=== PATIENT | male | born 1940 | race Caucasian/White ===

== ENCOUNTER → 2017-06-04 | Outpatient (CLI) | payer BC ==
[~2017-06-04] MED LIST: ASPEC81 PO; LPT40 PO; NRV5 PO; OPTIRAY 320 IV PRN
--- NOTE | 2017-06-04 09:06 | DIAGNOSTIC IMAGING REPORT ---
ANGIOGRAPHY NECK COMBO CLINICAL HISTORY: 77 years-old Male presenting with right carotid stenosis, history of surgery in 2013. TECHNIQUE: Multidetector CT angiography of the neck was performed before and after the administration of intravenous contrast. 3-D volumetric and/or maximum intensity projection (MIP) images were subsequently reconstructed for review. IV contrast: 119 mL of Optiray 320. A dose lowering technique was used consistent with the principles of ALARA (as low as reasonably achievable). Stenosis measurements were based on NASCET-like criteria. COMPARISON: 02/14/2014. CT DOSE (mGy.cm): The estimated cumulative dose is 903.76 mGy.cm. FINDINGS: Welding Supervisor topogram: Unremarkable. Three-vessel aortic arch. Mild atherosclerosis of the aortic arch. Bilateral common carotid arteries patent. Postsurgical changes of the distal right common carotid artery, right carotid bifurcation, and origin of the right internal carotid artery. Overlying graft noted. However, significant stenosis of the proximal right ICA persists with a minimal lumen of 1.1 mm in comparison to the normal distal diameter of 4.0 mm (approximately 75% stenosis). The remainder of the right ICA is patent. Left internal carotid artery patent though calcified plaque is noted at the left carotid bulb. Previously noted narrowing of the origin of the right vertebral artery is less pronounced on the current exam and appears widely patent. The origin of the left vertebral artery is also widely patent. Codominant vertebral arteries. 2. Short segment caliber changes in the mid cervical left vertebral artery (series 5 images 255 and 286), unchanged from prior exam and possibly representing prior injury. No evidence of acute dissection or focal vessel occlusion. Soft tissues of the neck are within normal limits allowing for the phase of contrast. Limited intracranial evaluation within normal limits. Paranasal sinuses and mastoid air cells clear. Degenerative changes of the mid to lower cervical spine. Severe emphysematous changes at the lung apices. IMPRESSION: 1. Postsurgical changes of the distal right common carotid artery, right carotid bifurcation, and origin of the right internal carotid artery. However, approximate 75% stenosis of the origin of the right ICA persists. 2. No other significant stenosis. 3. No evidence of acute dissection or focal vessel occlusion. Electronically signed by: Luís Rasheed M.D. 06/04/2017 9:05 AM Dictated Date/Time: 06/04/2017 8:50 AM
== END | disposition home or self-care (01) ==
LOC: C.CTS 08:16
PROVIDERS: ATTEND Physician Assistant
DX: I65.21 Occlusion and stenosis of right carotid artery (principal); Z98.890 Other specified postprocedural states

== ENCOUNTER 2017-09-10 05:24 | Inpatient (IN) | payer BC, OTHER ==
[2017-09-06 08:15] VITALS: BMI 24.0
--- NOTE | 2017-09-06 08:48 | PAT Medication Instructions ---
Service Date September 06, 2017. Current Home Medication List Amlodipine (Norvasc), 5 MG PO QAM Aspirin (Aspirin Ec), 81 MG PO QAM Atorvastatin (Lipitor), 40 MG PO QPM Medication Instructions For Your Scheduled Surgery - Take the following medications the morning of surgery with a sip of water: Amlodipine (Norvasc), 5 MG PO QAM Aspirin (Aspirin Ec), 81 MG PO QAM (OK per surgeon) - Take the following medications as scheduled the night before surgery: Atorvastatin (Lipitor), 40 MG PO QPM If you have any questions please call us at [phone] or [phone] or [phone]
--- NOTE | 2017-09-06 09:24 | DIAGNOSTIC IMAGING REPORT ---
CHEST 2 VIEWS ROUTINE CLINICAL HISTORY: PAT preoperative evaluation COMPARISON STUDY: 02/13/2014 FINDINGS: Mild emphysematous change. No focal infiltrate. Moderate degenerative change thoracic spine IMPRESSION: Negative chest. Mild emphysematous change The above report was generated using voice recognition software. It may contain grammatical, syntax or spelling errors. Electronically signed by: Tushar King M.D. 09/06/2017 9:23 AM Dictated Date/Time: 09/06/2017 9:21 AM
[2017-09-06 10:11] LABS: BASO % 0.8 %; BASO ABS # 0.06 K/uL (0-0.2); EOS % 1.4 %; EOS ABS # 0.11 K/uL (0-0.5); HEMATOCRIT 43.7 % (42-52); HEMOGLOBIN 15.2 g/dL (14.0-18.0); IG# 0.03 K/uL (0.00-0.02); LYMPH ABS # 1.89 K/uL (1.2-3.4); MEAN CORPUSCULAR HGB CONC 34.8 g/dl (32-36); MEAN PLATELET VOLUME 9.1 fL (7.4-10.4); MONO % 8.5 %; MONO ABS # 0.67 K/uL (0.11-0.59); NEUT % 64.9 %; NEUT ABS # 5.12 K/uL (1.4-6.5); PLATELET COUNT 367 K/uL (130-400); RED CELL DISTRIBUTION WIDTH CV 13.4 % (11.5-14.5); RED CELL DISTRIBUTION WIDTH SD 44.2 fL (36.4-46.3); WHITE BLOOD COUNT 7.88 K/uL (4.8-10.8)
[2017-09-06 10:19] LABS: PTT PATIENT 26.4 SECONDS (21.0-31.0)
[2017-09-10] VITALS (10 sets, daily range): BP systolic 125–160; BP diastolic 62–82; PULSE 79–105; TEMP 36.6–37.3; O2SAT 95–96; Ht 172.7 cm; Wt 73.9 kg
[~2017-09-10] VITALS: Ht 172.7 cm; Wt 73.9 kg
[~2017-09-10 05:24] MED LIST changes: +AMLO-110 PO; -ASPEC81 PO; +ASPI81TA28 PO; +ATOR-24 PO; -LPT40 PO; -NRV5 PO; -OPTIRAY 320 IV PRN
--- NOTE | 2017-09-10 05:51 | History and Physical ---
History & Physical Date of Service September 10, 2017. History & Physical Chief Complaint: Recurrent RICAS History of Present Illness: Mr. Jacky Aceves is a 77-year-old gentleman, who underwent a right carotid endarterectomy in January 2014. He was seen in our office in April 2017 after an ultrasound that showed re-stenosis of his right carotid measuring approximately 50-69%. Given the high diastolic velocities on his duplex, we recommended that he undergo a CTA of the neck. This showed a very significant narrowing in his right carotid artery. Mr. Aceves says that he was surprised to hear that his carotid stenosis had recurred. He has otherwise been feeling well, and denies any episodes of unilateral upper or lower extremity numbness or weakness. He has not had any visual changes or symptoms concerning for amaurosis fugax. He does note that his is supposed to have knee surgery in 2 weeks, and for this reason, he would like to delay any surgery that he might need on his carotid. He is otherwise feeling well. Denies fevers, chills , night sweats, headache, dizziness, chest pain, shortness of breath. Allergies No Known Allergies Surgical / Medical History Hx Cardiac Surgery: No Hx Abdominal Surgery: No Hx Cancer Surgery: No Hx Thoracic Surgery: No Hx Orthopedic: No Hx Urinary Tract Surgery: No HX Other Surgery: No CAD Carotid artery disease Family History Cancer Heart disease Hypertension Lung disease Social History Smoking Status: Former Smoker Hx Tobacco Use In Past Year?: No Hx Alcohol Use - Type & Amnt: Yes (beer, wine occasionally) Hx Substance Use -Type & Amnt: No Review of Systems Constitutional: no fever, No chills Skin: No change in color Eyes: No photophobia, No visual changes ENMT: No rhinorrhea Respiratory: No cough, No LESTER, No hemoptysis, No short of breath Cardiovascular: No chest pain, No palpitations, No syncope, No edema, No intermittent claudication Gastrointestinal: No abdominal pain, No diarrhea, No nausea, No vomiting Neurologic: No dizziness, No weakness, No headache, No numbness, No tingling Physical Exam Physical Exam: Constitutional: General Apperance: heathly-appearing, well-nourished, well-developed Level of Distress: NAD Ambulation: ambulating normally Psychiatric: Mental Status: active & alert, normal mood, normal affect Orientation: oriented except where noted, to time, to place, to person Memory: recent memory normal, remote memory normal Head: normocephalic, atraumatic Eyes: EOM: EOMI ENMT: normal ENT inspection, hearing grossly normal Neck: supple, trachea midline Lungs: Respiratory effort: no dyspnea Auscultation: no wheezing, no rales/crackles, no rhonchi, decreased breath sounds Cardiovascular: Apical Impulse: not displaced Heart Auscultation: RRR, no murmurs, no rubs, no gallops Peripheral Pulses: Pulses: full and equal, in all extremities except if noted Bruits: none appreciated Brachial Pulses: normal on the left, normal on the right Radial Pulse: normal on the left, normal on the right Ulnar Pulse: normal on the left, normal on the right Femoral Pulse: normal on the left, normal on the right Posterior Tibialis Pulse: normal on the left, normal on the right Dorsalis Pedis Pulse: normal on the left, normal on the right Abdomen: Bowel Sounds: normal Inspection & Palpation: soft, non-distended, no tenderness, guarding & rebound Musculoskeletal: normal strength (5/5 throughout), normal tone Extremities: Upper Right: no cyanosis, no edema, no varicosities Upper Left: no cyanosis, no edema, no varicosities Lower Right: no cyanosis, no edema, no varicosities Lower Left: no cyanosis, no edema, no varicosities Neurologic: Cranial Nerves: grossly intact Sensation: grossly intact ASSESSMENT and PLAN: Recurrent RICAS, severe Plan: Patient is admitted for a redo right carotid endarterectomy. I have discussed the risks options and benefits of the procedure with the patient. The patient understands the risks options and benefits and agrees to the procedure.
[2017-09-10] MEDS ORDERED: CEFAZOLIN 1000MG IV PUSH 7.5 ML IV SCH (06:00)
[2017-09-10] MEDS ORDERED: LACTATED RINGER'S 1000ML 1,000 ML IV SCH ×2 (06:00)
[2017-09-10] MEDS ORDERED: MIDAZOLAM HCL 1 MG/ML 2ML VIAL ONE (06:44)
[2017-09-10] MEDS ORDERED: FENTANYL CITRATE INJ 50 MCG/1 ML 2 ML VIAL ONE ×2 (06:44→08:22)
[2017-09-10] MEDS ORDERED: LIDOCAINE HCL 1% 20 ML VIAL ONE (06:49)
[2017-09-10] MEDS ORDERED: CEFAZOLIN SOD 1 GM VIAL ONE (06:49)
[2017-09-10] MEDS ORDERED: THROMBIN FOR SOLN 20000 UNIT KIT ONE (06:49)
[2017-09-10] MEDS ORDERED: GELATIN SPONGE SZ 100 ONE (06:49)
[2017-09-10] MEDS ORDERED: HEPARIN SOD (PORCINE) 1000 UNIT/ML 10 ML VIAL ONE ×2 (06:50→08:14)
[2017-09-10] MEDS ORDERED: BUPIVACAINE/EPINEPHRINE 0.5% MPF 1:200,000 30 ML VIAL ONE (06:53)
--- NOTE | 2017-09-10 07:13 | History & Physical Bridge Note ---
H&P Re-Evaluation Bridge Note: I have examined the patient, reviewed the History & Physical and in the interval since the performance of the History & Physical I have noted the following changes of clinical significance: No changes noted
[2017-09-10] MEDS ORDERED: FENTANYL CITRATE INJ 50 MCG/1 ML 2 ML VIAL IV PRN (07:30)
[2017-09-10] MEDS ORDERED: ONDANSETRON INJ 2 MG/ML 2 ML VIAL IV PRN ×2 (07:30→09:45)
[2017-09-10] MEDS ORDERED: ATROPINE SULFATE 0.1 MG/ML 5ML SYR IV PRN (07:30)
[2017-09-10] MEDS ORDERED: EpHEDrine SULFATE INJ 50 MG/ML AMP IV PRN (07:30)
[2017-09-10] MEDS ORDERED: PROPOFOL IV EMULSION 10 MG/ML 20 ML VIAL ONE (08:05)
[2017-09-10] MEDS ORDERED: DEXAMETHASONE SOD INJ 4 MG/ML VIAL ONE (08:05)
[2017-09-10] MEDS ORDERED: ROCURONIUM BROMIDE 10 MG/ML 5 ML VIAL ONE (08:05)
[2017-09-10] MEDS ORDERED: LIDOCAINE HCL 2% 2 ML VIAL (20MG/ML) ONE (08:05)
[2017-09-10] MEDS ORDERED: PHENYLEPHRINE HCL INJ 10 MG/ML VIAL ONE (08:06)
[2017-09-10] MEDS ORDERED: EpHEDrine SULFATE 50MG/5ML SYR ONE (08:06)
[2017-09-10] MEDS ORDERED: ONDANSETRON INJ 2 MG/ML 2 ML VIAL ONE (08:08)
[2017-09-10] MEDS ORDERED: GLYCOPYRROLATE INJ 0.2 MG/ML VIAL ONE (09:37)
[2017-09-10] MEDS ORDERED: NEOSTIGMINE METHYLSULFATE 5 MG/5 ML SYR ONE (09:37)
--- NOTE | 2017-09-10 09:40 | [facility] Post Operative Brief Note ---
Immediate Operative Summary Operative Date September 10, 2017. Pre-Operative Diagnosis Recurrent right internal carotid artery stenosis Post-Operative Diagnosis Same Procedure(s) Performed Redo Right Carotid Endarterectomy with patch angioplasty Surgeon Dr Sheriff Social Worker Palliative Care Surgeon(s) Love Varela PA-C Estimated Blood Loss 120 ML Findings Consistent with Post-Op Diagnosis Specimens A. Right Carotid Plaque Drains None Anesthesia Type General Complication(s) none Disposition Accompanied Pt To Recover: no Disposition: Recovery Room / PACU
[2017-09-10] MEDS ORDERED: OXYCODONE/ACETAMINOPHEN 5-325 TAB PO PRN (09:45)
[2017-09-10] MEDS ORDERED: ACETAMINOPHEN 325 MG TAB PO PRN (09:45)
[2017-09-10] MEDS ORDERED: MoRPHine SULFATE 4 MG/ML 1 ML CARP\\VIAL IV PRN (09:45)
--- NOTE | 2017-09-10 09:47 | [facility] Operative Report ---
Operative Report Operative Date September 10, 2017. 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 Right Carotid Plaque Drains None Anesthesia Type General Complication(s) none Disposition no Recovery Room / PACU Indications Patient is a 77 yo male who had a right carotid endart done years ago and now has developed significant restenosis. Redo CEA was recommended. I have discussed the risks options and benefits of the procedure with the patient. The patient understands the risks options and benefits and agrees to the procedure. Description of Procedure The patient was taken to the operating room and placed in supine position. After general anesthesia was accomplished the right side of the neck was prepped and draped in a sterile manner. A longitudinal neck incision was then made coursing along the medial border of the sternocleidomastoid muscle. The incision was taken down through the platysmal layer. The common carotid artery was then seen. It was dissected free down to the omohyoid muscle. The dissection was carried upward until the external carotid artery and superior thyroid artery was seen. The superior thyroid artery was slung with a 2-0 silk suture. The external carotid was slung with a red rubber vessel loop. Next the dissection was carried up along the internal carotid artery. This was carried upward to beyond the area of narrowing and beyond the end of the old patch. The hypoglossal nerve was seen and preserved. The patient was heparinized. After adequate heparinization was accomplished, the internal, external, and common carotid arteries were clamped. A longitudinal arteriotomy was started on the common carotid artery and extended upward along the internal carotid artery to a point beyond the area of narrowing. There was fibrous hyperplasia of the internal carotid artery origin causing approximately 85-90% narrowing. A Doppler shunt was then placed in the internal, followed by the common carotid artery and held in place with Rigoberto clamps. There was good back bleeding seen from the internal carotid artery. The endarterectomy was then started in the appropriate plane on the common carotid artery. This was carried upward and the external carotid was everted and endarterectomized. The endarterectomy was then carried up along the internal carotid artery till a nice feathering breakoff point was accomplished beyond the end of the narrowed area. The endarterectomy was then carried down further on the common carotid artery. At end of the arteriotomy, the plaque was then transected. Under loop magnification, all loose debris and flaps werer removed. There is no distal flap seen at the end of the endarterectomy site. The arteriotomy then closed using an Accuseal patch and a running CV 6 [place]-Davon suture. This was done in the usual vascular fashion. Prior to completing the closure, the doppler shunt was removed and the internal and common carotid arteries were reclamped. Backbleeding and forward bleeding was allowed to occur. The flow surface was irrigated with heparinized saline. The final few sutures were then placed and securely tied. Clamps were then removed off the external and common carotid arteries. The clamp was then removed the internal carotid artery. Good distal flow was seen. Adequate hemostasis was seen of the patch. The wound was inspected and adequate hemostasis was obtained. The wound was irrigated with antibiotic solution. It was then closed with a running 3-0 Vicryl suture for the platysmal layer and a 4-0 subcuticular Vicryl suture for the skin edges. Dermabond was used for dressing. The patient left the operating room in satisfactory condition and tolerated the procedure well. Love Varela Pac assisted due to lack of resident availability and was necessary for prepping, draping, retraction, wound closure defects, subQ and skin closure and was necessary for the case. I attest to the content of the Intraoperative Record and any orders documented therein. Any exceptions are noted below.
[2017-09-10] MEDS ORDERED: BUPIVACAINE/EPINEPHRINE 0.5% MPF 1:200,000 30 ML VIAL INJ ONE (10:18)
--- NOTE | 2017-09-10 11:49 | Anesthesiology Progress Note ---
Anesthesia Post Op Note Date & Time September 10, 2017 at 11:49 Vital Signs Pain Intensity: 0 Vital Signs Past 12 Hours Date Time Temp Pulse Resp B/P (MAP) Pulse Ox O2 Delivery O2 Flow Rate FiO2 09/10/17 11:02 90 18 09/10/17 11:02 90 18 94 09/10/17 11:01 129/56 09/10/17 10:58 130/53 09/10/17 10:57 85 14 95 09/10/17 10:57 85 14 09/10/17 10:52 37.5 94 Nasal Cannula 3 09/10/17 10:52 88 16 156/52 94 09/10/17 10:52 89 16 09/10/17 10:51 120/61 09/10/17 10:47 85 15 09/10/17 10:47 85 15 146/49 95 09/10/17 10:46 78 19 137/62 94 09/10/17 10:46 79 19 09/10/17 10:41 80 14 122/68 95 138/48 09/10/17 10:41 79 14 09/10/17 10:40 81 15 09/10/17 10:40 80 15 137/48 94 09/10/17 10:36 130/53 09/10/17 10:35 75 19 143/49 98 09/10/17 10:35 74 19 09/10/17 10:31 148/63 09/10/17 10:30 79 13 09/10/17 10:30 79 13 130/48 99 09/10/17 10:29 73 12 09/10/17 10:29 73 12 142/51 99 09/10/17 10:26 139/63 09/10/17 10:24 78 16 09/10/17 10:24 78 16 146/52 100 09/10/17 10:21 143/57 09/10/17 10:19 82 13 09/10/17 10:19 82 13 133/49 100 133/49 09/10/17 10:17 107/53 09/10/17 10:14 80 09/10/17 10:14 80 99 09/10/17 10:14 37.0 73 16 142/50 99 Oxymask 10 09/10/17 05:54 37.1 83 20 160/82 96 Room Air Notes Mental Status: alert / awake / arousable, participated in evaluation Pt Amnestic to Procedure: Yes Nausea / Vomiting: adequately controlled Pain: adequately controlled Airway Patency, RR, SpO2: stable & adequate BP & HR: stable & adequate Hydration State: stable & adequate Anesthetic Complications: no major complications apparent
[2017-09-10] MEDS: D5W AND 1/2NSS 1,000 ML IV SCH ×2 (12:26→19:30)
[2017-09-10] MEDS ORDERED: CEFAZOLIN IV 1,000 MG in SYRINGE 0 ML IV SCH (17:00)
[2017-09-10] MEDS ORDERED: NURSING VERBAL MED ORDER ONE (17:30)
[2017-09-10] MEDS ORDERED: ATORVASTATIN 40 MG TAB PO SCH (21:00)
[2017-09-11 00:10] VITALS: BP 145/71; PULSE 80; TEMP 36.8; O2SAT 91
[2017-09-11 03:20] VITALS: BP 149/61; PULSE 73; TEMP 36.6; O2SAT 91
[2017-09-11] MEDS: D5W AND 1/2NSS 1,000 ML IV SCH (04:16)
[2017-09-11 06:43] VITALS: BP 155/70; PULSE 63; TEMP 36.8; O2SAT 96
[2017-09-11 07:38] LABS: CREATININE 1.05 mg/dl (0.60-1.40)
--- NOTE | 2017-09-11 07:56 | Anesthesiology Progress Note ---
Anesthesia Post Op Note Date & Time September 11, 2017 at 07:56 Vital Signs Pain Intensity: 0.0 Vital Signs Past 12 Hours Date Time Temp Pulse Resp B/P (MAP) Pulse Ox O2 Delivery O2 Flow Rate FiO2 09/11/17 06:43 36.8 63 19 155/70 (98) 96 Room Air 09/11/17 04:00 Room Air 09/11/17 03:20 36.6 73 17 149/61 (90) 91 Room Air 09/11/17 00:10 36.8 80 17 145/71 (95) 91 Room Air 09/11/17 00:01 Room Air 09/10/17 20:00 Room Air Notes Mental Status: alert / awake / arousable, participated in evaluation Pt Amnestic to Procedure: Yes Nausea / Vomiting: adequately controlled Pain: adequately controlled Airway Patency, RR, SpO2: stable & adequate BP & HR: stable & adequate Hydration State: stable & adequate Anesthetic Complications: no major complications apparent
[2017-09-11] MEDS ORDERED: AMLODIPINE BESYLATE 5 MG TAB PO SCH (09:00)
[2017-09-11] MEDS ORDERED: ENOXAPARIN 30 MG/0.3 ML SYR SQ SCH (09:00)
[2017-09-11] MEDS ORDERED: ASPIRIN 81 MG ECTAB PO SCH (09:00)
[2017-09-11 11:55] VITALS: BP 190/78; PULSE 79; TEMP 36.3; O2SAT 96
--- NOTE | 2017-09-11 12:35 | Discharge Instructions ---
Discharge Instructions Date of Service September 11, 2017. Admission Reason for Admission: Right Internal Carotid Artery ReStenosis Discharge Discharge Diagnosis / Problem: post repeat Right carotid endarterectomy, R Carotid artery restenosis Discharge Goals Goal(s): Therapeutic intervention, Prevent Disease Progression Activity Recommendations Activity Limitations: per Instructions/Follow-up section . Instructions / Follow-Up Instructions / Follow-Up 1. No driving x 1 week. Other activity as tolerated. 2. May shower, no soaking of incision in water. 3. Needs follow up appt with Dr Sheriff or Love Varela PA-C in 2 weeks. Call [phone] for appt if one not already scheduled. 4. Call office at [phone] with questions. Current Hospital Diet Patient's current hospital diet: AHA Diet (Heart Healthy) Discharge Diet Recommended Diet: AHA Diet (Heart Healthy) Procedures Procedures Performed: Redo Right Carotid Endarterectomy with patch angioplasty Pending Studies Studies pending at discharge: no Medical Emergencies . Who to Call and When: Medical Emergencies: If at any time you feel your situation is an emergency, please call 911 immediately. . Non-Emergent Contact Non-Emergency issues call your: Primary Care Provider, Surgeon . "Provider Documentation" section prepared by Love Varela. .
--- NOTE | 2017-09-11 12:45 | Progress Note ---
Progress Note Date of Service: September 11, 2017. Subjective 77 yo m with hx of R CEA in past d/t CVA, POD #1 after R CEA redo, seen in f/u today. Pt denies pain and states feeling generally well, admits sore throat and fatigue. Denies other complaints. Taking PO well, ambulating without difficulty. Denies [place], chest pain, difficulty speaking or swallowing. Objective Vital Signs Vital Signs Past 12 Hours Date Time Temp Pulse Resp B/P (MAP) Pulse Ox O2 Delivery O2 Flow Rate FiO2 09/11/17 11:55 36.3 79 16 190/78 (115) 96 Room Air 09/11/17 08:00 Room Air 09/11/17 06:43 36.8 63 19 155/70 (98) 96 Room Air 09/11/17 04:00 Room Air 09/11/17 03:20 36.6 73 17 149/61 (90) 91 Room Air Exam CONST: A&O x3, NAD, mildly chronically ill appearing male NECK: R neck incision C/D/I, + minimal tenderness, edema, ecchymosis. trachea midline. CHEST: RRR, lungs decreased, but ctab ABD: soft, nontender, + bs x 4 quad EXT: ESQUEDA NEURO no focal deficits. Laboratory and Microbiology Results Past 24 Hours Test 09/11/17 06:04 Range/Units Creatinine 1.05 0.60-1.40 mg/dl Est Creatinine Clear Calc Drug Dose 57.9 ml/min Estimated GFR () 79.5 Estimated GFR (Non- 68.6 ASSESSMENT and PLAN: s/p redo R CEA R ICA restenosis Pt doing well post op. D/C home today. Pt declines offer of short term pain medication, states will take tylenol if he develops pain.
[2017-09-11 13:31] VITALS: BP 190/78; PULSE 79; TEMP 36.3; O2SAT 96
== END 2017-09-11 14:16 | disposition home or self-care (01) | DRG 39 ==
LOC: C.ACU 05:24 → C.2T 09:49 → ENRESERV 10:34
PROVIDERS: ADMIT Surgery Vascular Surgery; ATTEND Surgery Vascular Surgery
PROC: 03UK0JZ Supplement Right Internal Carotid Artery with Synthetic Substitute, Open Approach (ICD-10-PCS; principal; 2017-09-10 07:30)
PROC: 03CK0ZZ Extirpation of Matter from Right Internal Carotid Artery, Open Approach (ICD-10-PCS; principal; 2017-09-10 07:30)
DX: I65.21 Occlusion and stenosis of right carotid artery (principal); I25.10 Atherosclerotic heart disease of native coronary artery without angina pectoris; Z98.890 Other specified postprocedural states; Z87.891 Personal history of nicotine dependence; Z82.49 Family history of ischemic heart disease and other diseases of the circulatory system

== ENCOUNTER 2020-11-10 18:57 | Inpatient (IN) ==
[2020-11-10] MEDS ORDERED: PIPERACILL/TAZOBAC CONSULT ACTIVE PRN ×2 (20:05→23:16)
--- NOTE | 2020-11-10 20:15 | History & Physical Report ---
Date of Service November 10, 2020 Assessment & Plan (1) Left groin mass: Plan: The etiology of patient's groin mass is unclear at this time however by CAT scan this appears to be a fluid collection. This could represent either a seroma, hematoma, or abscess. Because of the groin mass he will be admitted to the hospital we will proceed as follows: Template planning on surgical exploration tomorrow Patient be allowed clear liquids up until midnight tonight at which time he will be made n.p.o. We will provide gentle IV fluids for hydration We will check labs including a CBC, PRP, blood cultures, and urinalysis We will check a Covid test We will check preoperative EKG and chest x-ray We will place the patient empirically on antibiotics in the form of Zosyn SCDs were used for DVT prevention, no chemical means were used in anticipation of surgery Additional recommendations were made based on operative findings as well as patient's clinical course as it unfolds Discussed CODE STATUS with the patient in the presence of his and he notes that he will be a level 1 full code in the event of cardiopulmonary arrest History of Present Illness Chief Complaint: Groin mass Primary Care Provider: NO PCP This is a 80-year-old male who was seen by Dr. Tellez in the outpatient clinic today for possible left inguinal hernia. The patient notes that approximately 10 days ago he had an incident where his dog ran out the door and the patient went to grab his dog. Following this incident the patient noted some pain in his left groin. He notes over the ensuing days he noticed groin swelling that became worse. He contacted his primary care provider who felt that the patient may have a hernia and therefore ultrasound was ordered. The ultrasound was performed which suggested hernia containing bowel and because of this the patient was referred to Dr. Tellez. He was seen by Dr. Tellez today where the patient felt that the area in question was getting larger and progressively worse. Patient does note that he has not had a bowel movement in over 1 week however he is pot passing flatus without difficulty. He is tolerating diet but does admit that his appetite is slightly decreased. He denies any nausea or vomiting. He denies any fevers, shakes, chills. He also denies any abdominal pain. He denies taking blood thinners other than a baby aspirin. The patient was referred for CT scan by Dr. Tellez today. This was completed and revealed an 8 x 6 x 6 cm cystic lesion in the left groin that was concerning for an abscess. There was also a right inguinal hernia containing a portion of the cecum however there is no evidence of bowel obstruction or free air. His appendix was normal. Because of the CT scan findings the patient was referred for direct admission but due to lack of bed availability he reported to the hospital through the emergency department I visited with the patient in the emergency department at approximate 8:00 PM at this time the patient was resting comfortably in bed in no distress. He did not have any pain other than some tenderness in the left groin with palpation. Allergies Allergy/AdvReac Type Severity Reaction Status Date / Time No Known Allergies Allergy Unverified 11/10/20 10:30 Home Medications Medication Instructions Recorded Confirmed Type amlodipine 5 mg tablet 5 mg PO DAILY 11/08/20 11/10/20 History aspirin 81 mg tablet,delayed 81 mg PO DAILY 11/08/20 11/10/20 History release (Adult Aspirin Regimen) atorvastatin 40 mg tablet 40 mg PO DAILY 11/08/20 11/10/20 History Past Med/Surg History Medical History Fibroxanthoma Left groin mass SIRS (systemic inflammatory response syndrome) Skin lesion Tubular adenoma of colon Surgical History H/O carotid endarterectomy Redo Right CEA 09/10/2017 H/O tooth extraction 2019, 2018, 2017 H/O wisdom tooth extraction 1987 Hx of colonoscopy 2017 S/P carotid endarterectomy 02/17/2014 Family History Mother Cancer Brother Cancer Myocardial infarction Social History Smoking Status: Former smoker Tobacco Type: Cigarettes packs per day: 2; Years Smoked: 40; Second Hand Exposure: No; Do You Dip or Chew Tobacco: No; Hx Alcohol Use: Yes Alcohol type: beer and wine Hx Substance Use: No Preferred Language: Kyrgyz Communication Ability: Effective Bag Bundler Required: No Beliefs That Will Affect Care: None Current Living Situation: Spouse current occupational status: retired How many Children do You have: 2 Feels Safe at Home: Yes Safety Concerns: Feels Safe At This Time Assistive Devices: Glasses Review of Systems Constitutional: no fever and no chills Eyes: no diplopia Respiratory: no cough and no dyspnea Cardiovascular: no chest pain Gastrointestinal: + change in bowel habits; no abdominal pain, no nausea and no vomiting Genitourinary: no dysuria Musculoskeletal: No calf tenderness Integumentary: no rash Neurologic: no localized weakness Physical Exam 2 Constitutional: well developed and well nourished; no acute distress Eyes: no conjunctival abnormality Wears glasses Neck: trachea midline Cardiovascular: Rate/Rhythm: regular rate and regular rhythm Gastrointestinal (Abdomen): Abdomen is soft nondistended and nontender. Bowel sounds are present. I was unable to palpate any hernias in the right groin. In the left groin the patient had erythema noted and also a large mass that was tender to palpation with some warmth. This area was nonreducible. There is no open areas or drainage. Musculoskeletal: No gross orthopedic abnormalities. Skin: no rashes Neurologic: moves all extremities Psychiatric: A+Ox3, euthymic affect Results & Data Results & Data ([facility]) Vital Signs (Past 12 Hours) Vital Signs Temp Pulse Resp BP Pulse Ox 11/10/20 19:07 37.6 C H 111 H 18 172/79 H 93 Code Status & VTE Plan VTE Prophylaxis Plan VTE Prophylaxis will be ordered: Yes Supervising Physician Co-Signing Physician Notes As per Marcel Lilly physician programs assistant Lab noted patient is on antibiotics Complex fluids possible abscess left groin area Patient moved his bowels overnight which was a positive factor since I was conc erned that this could have been a perforated diverticulum from the sigmoid going into the inguinal canal and scrotum This morning the abdomen is completely benign redness superior to the groin crease without any definitive fluctuance +4 left femoral pulse We will plan for exploration of the left groin possible hernia repair possible colostomy (unlikely) Risk and complication were explained to the patient including bleeding infection and the surgical process and he would like to proceed accordingly Permit was signed area was marked PG Care Time/CCT Total # of Minutes Spent Total Time Spent with Patient: Total time spent is greater than 50% in coordination of care (as documented) at patient's floor/unit and/or counseling patient: Coding Level of Care Code 62014 Initial Inpt Care Lvl 3 Diagnoses Left groin mass R19.09
--- NOTE | 2020-11-10 20:43 | XRay Report ---
XR chest 1V portable HISTORY: Preop. Fever. COMPARISON: Chest 02/13/2014. FINDINGS: No pneumothorax. No pleural effusions. The heart is normal in size. There is emphysema with vascular crowding at the lung bases. No new focal lung consolidations to suggest pneumonia. No evide nce for pulmonary edema. IMPRESSION: Emphysema. Otherwise, no acute process within the chest. ACT 112: Negative or not required by law. Electronically signed by: Iván Ramos M.D. 11/10/2020 8:42 PM
[2020-11-10] MEDS ORDERED: PIPERACILLIN/TAZOBACTAM 4.5 GM/120 ML BAG IV STA (20:45)
[2020-11-10] MEDS: LACTATED RINGER'S 1,000 ML IV SCH (21:08)
[2020-11-10 21:09] LABS: Hematocrit (blood only) 42.9 % (42-52); Hemoglobin 14.5 g/dL (14.0-18.0); Mean Corpuscular Hgb Conc 33.8 g/dL (32-36); Mean Corpuscular Volume 91.7 fL (80-100); Mean Platelet Volume 8.9 fL (7.4-10.4); Platelet Count 676 K/uL (130-400); RDW Coefficient of Variation 13.5 % (11.5-14.5); RDW Standard Deviation 44.6 fL (36.4-46.3); Red Blood Count 4.68 M/uL (4.7-6.1)
[2020-11-10 21:23] LABS: Basophils # (auto) 0.03 K/uL (0-0.2); Basophils % (auto) 0.1 %; Immature Granulocytes # (auto) 0.16 K/uL (0.00-0.02); Immature Granulocytes % (auto) 0.6 %; Lymphocytes # (auto) 2.06 K/uL (1.2-3.4); Lymphocytes % (auto) 7.3 %; Monocytes # (auto) 0.73 K/uL (0.11-0.59); Monocytes % (auto) 2.6 %; Neutrophils # (auto) 25.42 K/uL (1.4-6.5); Neutrophils % (auto) 89.4 %; RBC Morphology Unremarkable
[2020-11-10 21:27] LABS: INR 1.1 (0.9-1.1); Partial Thromboplastin Time 27.2 Seconds (21.0-31.0); Prothrombin Time 10.9 Seconds (9.0-12.0)
[2020-11-10 21:29] LABS: BUN Creatinine Ratio 26.5 (10-20); Calcium 9.1 mg/dl (8.5-10.1); Creatinine Clr Calc Pharmacy 54.6 ml/min; Est GFR (African American) 78.8 ml/min; Potassium 4.2 mmol/L (3.5-5.1)
[2020-11-10] MEDS ORDERED: ONDANSETRON INJ 2 MG/ML 2 ML VIAL IV PRN (23:16)
[2020-11-10] MEDS ORDERED: ACETAMINOPHEN 1,000 MG/100 ML VIAL IV PRN (23:16)
[2020-11-11 00:14] LABS: Appearance Urine Clear (Clear); Bacteria Urine Automated Negative (Negative); Bilirubin Urine Negative (Negative); Blood Urine Negative (Negative); Color Urine Dark Yellow; Glucose Urine UA Negative (Negative); Ketones Urine Trace (Negative); Leukocyte Esterase Urine Negative (Negative); Nitrite Urine Negative (Negative); Protein Urine 1+ (Negative); RBC Urine Automated 0-4 /hpf (0-4); Specific Gravity Urine > 1.045 (1.000-1.030); Urobilinogen Urine Negative (Negative); pH Urine 5.5 (4.5-7.5)
[2020-11-11] MEDS: PIPERACILLIN/TAZOBACTAM 3.375 GM in DEXTROSE 5% 100 ML IV SCH ×3 (02:02→17:40)
[2020-11-11] MEDS: amLODIPine BESYLATE 5 MG TAB PO SCH (07:54)
[2020-11-11] MEDS: ATORVASTATIN 40 MG TAB PO SCH (07:54)
--- NOTE | 2020-11-11 13:09 | Electrocardiogram Report ---
Test Reason : Blood Pressure : / mmHG Vent. Rate : 104 BPM Atrial Rate : 104 BPM P-R Int : 168 ms QRS Dur : 092 ms QT Int : 336 ms P-R-T Axes : 083 083 073 degrees QTc Int : 441 ms Sinus tachycardia Otherwise normal ECG When compared with ECG of 06-SEP-2017 09:03, Vent. rate has increased BY 47 BPM Confirmed by Eliud Willson ([id number]) on 11/11/2020 1:09:15 PM Referred By: Sabino Tellez Confirmed By:Yasir Willson
[2020-11-11] MEDS ORDERED: MIDAZOLAM HCL 1 MG/ML 2ML VIAL ONE (13:16)
[2020-11-11] MEDS ORDERED: PROPOFOL IV EMULSION 10 MG/ML 20 ML VIAL IV ONE (13:16)
[2020-11-11] MEDS ORDERED: fentaNYL citrate 100 MCG/2 ML VIAL ONE (13:16)
[2020-11-11] MEDS ORDERED: LIDOCAINE 2% 2 ML VIAL/AMP(20MG/ML) INFIL ONE (13:16)
[2020-11-11] MEDS ORDERED: ROCURONIUM BROMIDE 10 MG/ML 5 ML VIAL IV ONE (13:16)
--- NOTE | 2020-11-11 13:23 | Anesthesiology Consultation ---
Date of Service November 11, 2020 Assessment & Plan Chart Review Chart Review: Acceptable Risk for Surgery Consults Requested none History Surgery Operation Date: 11/11/20 08:20 Proposed Procedures p Open Exploration Left Lower Quadrant, Possible Bowel Resection - Ignacio Lowery MD, FACS s Possible Open Inguinal Hernia Repair - Ignacio Lowery MD, FACS Height/Weight Height: 5 ft 7 in Weight: 65.499 kg Allergies Allergy/AdvReac Type Severity Reaction Status Date / Time No Known Allergies Allergy Unverified 11/10/20 10:30 Medications Home Medications Medication Instructions Recorded Confirmed Last Taken amlodipine 5 mg tablet 5 mg PO DAILY 11/08/20 11/10/20 Unknown aspirin 81 mg tablet,delayed 81 mg PO DAILY 11/08/20 11/10/20 Unknown release (Adult Aspirin Regimen) atorvastatin 40 mg tablet 40 mg PO DAILY 11/08/20 11/10/20 Unknown Active Medications Generic Name Dose Route Start Last Admin Trade Name Freq PRN Reason Stop Dose Admin Amlodipine Besylate 5 mg 11/11/20 09:00 11/11/20 07:54 Amlodipine Besylate 5 Mg Tab PO 12/11/20 08:59 5 mg DAILY MIR Administration Atorvastatin Calcium 40 mg 11/11/20 09:00 11/11/20 07:54 Atorvastatin 40 Mg Tab PO 12/11/20 08:59 40 mg DAILY MIR Administration Lactated Ringer's 1,000 mls @ 50 mls/hr 11/10/20 20:15 11/10/20 21:08 Lr IV 12/10/20 20:14 50 mls/hr .Q20H MIR Administration Piperacillin Sod/Tazobactam 115 mls @ 28.75 mls/hr 11/11/20 02:00 11/11/20 09:38 Sod 3.375 gm/ Dextrose IV 11/18/20 01:59 28.8 mls/hr Q8H MIR Administration Protocol NPO Date Last Intake of Fluids: 11/10/20 Time Last Intake of Fluids: 20:00 Last Intake of Fluids Comment: sip of water w/meds Date Last Intake of Solids: 11/09/20 Time Last Intake of Solids: 18:00 Past Medical History Medical History Fibroxanthoma Left groin mass SIRS (systemic inflammatory response syndrome) Skin lesion Tubular adenoma of colon Past Family History Family History Mother Cancer Brother Cancer Myocardial infarction Past Surgical History Surgical History H/O carotid endarterectomy Redo Right CEA 09/10/2017 H/O tooth extraction 2019, 2017 H/O wisdom tooth extraction 1987 Hx of colonoscopy 2017 S/P carotid endarterectomy 02/17/2014 Social History Smoking Status: Former smoker tobacco type: cigarettes Do You Dip or Chew Tobacco: No Hx Alcohol Use: Yes Alcohol type: beer and wine alcohol intake frequency: holidays/special occasions only Hx Substance Use: No substance use type: does not use Physical Exam Vital Signs Last Vital Signs Temp 37.2 C 11/11/20 11:54 Pulse 94 H 11/11/20 11:54 Resp 18 11/11/20 11:54 BP 158/72 H 11/11/20 11:54 Pulse Ox 96 11/11/20 11:54 Testing Laboratory Results 11/10/20 20:56 11/10/20 20:56 PT 10.9 Seconds (9.0-12.0) 11/10/20 20:56 INR 1.1 (0.9-1.1) 11/10/20 20:56 APTT 27.2 Seconds (21.0-31.0) 11/10/20 20:56 Urine Color Dark Yellow 11/10/20 23:15 Urine Appearance Clear (Clear) 11/10/20 23:15 Urine pH 5.5 (4.5-7.5) 11/10/20 23:15 Ur Specific [place] > 1.045 (1.000-1.030) H 11/10/20 23:15 Urine Protein 1+ (Negative) H 11/10/20 23:15 Urine Glucose (UA) Negative (Negative) 11/10/20 23:15 Urine Ketones Trace (Negative) H 11/10/20 23:15 Urine Nitrite Negative (Negative) 11/10/20 23:15 Ur Leukocyte Esterase Negative (Negative) 11/10/20 23:15 Urine WBC (Auto) 1-5 /hpf (0-5) 11/10/20 23:15 Urine RBC (Auto) 0-4 /hpf (0-4) 11/10/20 23:15 U Hyaline Cast (Auto) 1-5 /lpf (0-5) 11/10/20 23:15 U Epithel Cells (Auto) 10-20 /lpf (0-5) H 11/10/20 23:15 Urine Bacteria (Auto) Negative (Negative) 11/10/20 23:15
[2020-11-11] MEDS ORDERED: ePHEDrine sulfate 50 MG/ML AMP IV PRN (13:24)
[2020-11-11] MEDS ORDERED: fentaNYL citrate 100 MCG/2 ML VIAL IV PRN (13:24)
[2020-11-11] MEDS ORDERED: HYDROmorphone INJ 2 MG/ML SYR/VIAL IV PRN (13:24)
[2020-11-11] MEDS ORDERED: ATROPINE SULFATE 0.1 MG/ML 10ML SYR IV PRN (13:24)
[2020-11-11] MEDS ORDERED: ONDANSETRON INJ 2 MG/ML 2 ML VIAL IV PRN (13:24)
[2020-11-11] MEDS ORDERED: ONDANSETRON INJ 2 MG/ML 2 ML VIAL ONE (13:59)
[2020-11-11] MEDS ORDERED: NEOSTIGMINE METHYLSULFATE 1 MG/ML 10ML VIAL ONE (13:59)
[2020-11-11] MEDS ORDERED: GLYCOPYRROLATE 0.2 MG/ML VIAL ONE (13:59)
--- NOTE | 2020-11-11 14:22 | Post Operative Brief Note ---
PG Immediate Post Op with CF Date of Surgery November 11, 2020 Pre & Post Diagnosis Operation Date: 11/11/20 08:20 Pre-Op Diagnosis: GROIN ABSCESS Post-Op Diagnosis: GROIN ABSCESS I identified the patient and participated in the time-out.: Yes Procedure Operation Date: 11/11/20 08:20 Actual Procedures p Open Exploration Left Lower Quadrant, Possible Bowel Resection(Left) - Ignacio Lowery MD, FACS s Possible Open Inguinal Hernia Repair(Left) - Ignacio Lowery MD, FACS Surgeon Ignacio Lowery MD, FACS Outreach Assistant jyothi narayan Estimated Blood Loss 100 Findings Consistent with Post-Op Diagnosis Specimens Specimen Description: Culture #1: Left groin abscess Drains [place] Drain
--- NOTE | 2020-11-11 14:38 | Operative Report ---
PG Post Operative Report Pre & Post Diagnosis Operation Date: 11/11/20 08:20 Pre-Op Diagnosis: Left groin abscess Post-Op Diagnosis: Left groin abscess I identified the patient and participated in the time-out.: Yes Procedure Operation Date: 11/11/20 08:20 Actual Procedures p Irrigation and Debridement of Left Groin with Packing(Left) - Ignacio Lowery MD, FACS The patient was brought into the operating theater general trach anesthesia the abdomen left groin the left upper thigh was prepped byline solution properly ped systemic and biotics on board a timeout was had patient was identified the area of interest was a large mass that extended just inferior midline from the symphysis pubis to the anterior superior iliac crest inferior in the upper thigh the length of the area of interest was probably about 15 cm x 8 to 9 cm in width and certainly elevated from the abdominal wall about 6.6cm. It was quite red in durated no appreciable fluctuance could be felt at this point I made a 1 inch incision on the cephalic of this induration but deepened through subcutaneous tissue went through Claude's fascia without any fluctuance appreciated entered once we entered underneath the external fascia we immediately met with significant amount of greenish purulent drainage I used my finger to open up the area more and actually suctioned that out and wiped out a significant amount of purulent drainage it was not malodorous with this then I enlarged the incision almost from what appeared to be the external ring all the way towards the internal ring exposed the tissue which was completely indurated in fact the shelving portion of the inguinal ligament grossly appreciated in the outer portion as it became more ill-defined going towards the symphysis pubis but there was no purulence appreciated on this aspect most of the purulence appeared to be more superior medially. We irrigated the area and got to a point that I cannot feel any more areas that I could express some more of this purulent material the testicle appeared grossly normal by feel the cord in that area. If normal in fact putting pressure just inferior to this initial incision we still retaining significant amount of purulent material but most of the tissue was indurated significantly including the superior aspect close to the conjoined ten don and inferiorly down to the shelving portion of the inguinal ligament to the ileal pubic track in the retroperitoneal area there there was no evidence of any purulence I irrigated there was no evidence of any site for this purulent material could have come from the cord structures we were not able to easily identify but we went almost to the internal ring area just adjacent to the anterior superior iliac crest I could not identify any specific hernia or anything protruding from the retroperitoneal area as far as etiology of this abscess I am not sure whether or not he may have a localized perforation from a previous sigmoid colon but it did not look like that he had any incarcerated tissue the like incarcerated fatty tissue into a hernia sac the could account for this etiology of the abscess having said this we irrigated it significantly then I made a small incision in the scrotal area just towards the external ring where the tissue appeared to be softer and placed a 5/8 and the Friendly drain and dropped it down onto the floor of the canal and similarly used 1 inch plain gauze to pack the canal area in the subcutaneous tissue and muscular layer this left lower quadrant I used the external Bleich fascia to interruptedly placing pressure on top of the packing and 3-0 nylon was used to hold the skin edges together the packing was sutured to the skin edges and the medial aspect of the incision with 3-0 silk suture dressing was applied procedure was tolerated well by the patient estimated blood loss approximately 100 cc addendum Vaishnavi Saunders physician front desk assistant was present throughout the procedure and helped the retraction exposure and wound closure Addendum spoke with his Catherine at [phone] Surgeon Ignacio Lowery MD, FACS Filter Operator jyothi narayan Estimated Blood Loss 100 Findings Consistent with Post-Op Diagnosis Specimens Cultures of abscess cavity Drains 5/8 of an inch Friendly drain through a stab wound near the external ring half- inch plain gauze packing the whole floor in the inguinal area on the left Description of Procedure Done I attest to the content of the Intraoperative Record and any orders documented therein. Any exceptions are noted below.
[2020-11-11] MEDS ORDERED: oxyCODONE/ACETAMINOPHEN 5mg/325mg TAB PO PRN (15:35)
--- NOTE | 2020-11-11 15:38 | Anesthesiology Progress Note ---
Date of Service November 11, 2020 Anesthesia Post Procedure Vital Signs Vital Signs: Temp Pulse Pulse Pulse Resp BP BP 11/11/20 15:10 37.2 C 77 21 159/75 H 11/11/20 15:00 78 21 156/78 H 11/11/20 14:50 73 24 173/83 H 11/11/20 14:40 70 16 147/70 H 11/11/20 14:33 36.8 C 77 22 165/65 H 11/11/20 11:54 37.2 C 94 H 18 158/72 H 11/11/20 07:20 36.8 C 89 18 167/77 H 11/11/20 02:17 37.7 C H 91 H 16 11/10/20 23:16 38 C H 106 H 16 11/10/20 22:00 98 H 24 153/72 H 11/10/20 21:30 97 H 23 164/71 H 11/10/20 20:45 100 H 20 160/65 H 11/10/20 19:07 37.6 C H 111 H 18 172/79 H BP Pulse Ox 11/11/20 15:10 93 11/11/20 15:00 97 11/11/20 14:50 99 11/11/20 14:40 98 11/11/20 14:33 99 11/11/20 11:54 96 11/11/20 07:20 93 11/11/20 02:17 161/69 H 93 11/10/20 23:16 179/75 H 95 11/10/20 22:00 96 11/10/20 21:30 96 11/10/20 20:45 97 11/10/20 19:07 93 Pain Intensity Left Lower Abdomen: Pain Intensity: 2 Left Groin: Pain Intensity: 4 Transfer of Care Handoff Completed per policy Notes Mental Status: alert / awake / arousable Patient Amnestic to Procedure: Yes Nausea / Vomiting: adequately controlled Pain: adequately controlled Airway Patency, RR, SpO2: stable & adequate BP & HR: stable & adequate Hydration State: stable & adequate Anesthetic Complications: no major complications apparent
[2020-11-11] MEDS: LACTATED RINGER'S 1,000 ML IV SCH (16:12)
[2020-11-11] MEDS ORDERED: hydrALAZINE HCL 20 MG/ML VIAL IV PRN (17:58)
[2020-11-12] MEDS: PIPERACILLIN/TAZOBACTAM 3.375 GM in DEXTROSE 5% 100 ML IV SCH ×3 (01:35→17:38)
[2020-11-12 05:43] LABS: Basophils # (auto) 0.02 K/uL (0-0.2); Basophils % (auto) 0.1 %; Eosinophils # (auto) 0.07 K/uL (0-0.5); Eosinophils % (auto) 0.3 %; Hematocrit (blood only) 37.6 % (42-52); Hemoglobin 12.6 g/dL (14.0-18.0); Immature Granulocytes # (auto) 0.14 K/uL (0.00-0.02); Immature Granulocytes % (auto) 0.6 %; Lymphocytes # (auto) 1.17 K/uL (1.2-3.4); Lymphocytes % (auto) 5.2 %; Mean Corpuscular Hemoglobin 30.1 pg (25-34); Mean Corpuscular Hgb Conc 33.5 g/dL (32-36); Mean Corpuscular Volume 89.7 fL (80-100); Mean Platelet Volume 8.6 fL (7.4-10.4); Monocytes # (auto) 1.81 K/uL (0.11-0.59); Neutrophils # (auto) 19.37 K/uL (1.4-6.5); Neutrophils % (auto) 85.8 %; Platelet Count 565 K/uL (130-400); RDW Coefficient of Variation 13.1 % (11.5-14.5); RDW Standard Deviation 43.1 fL (36.4-46.3); Red Blood Count 4.19 M/uL (4.7-6.1); White Blood Count 22.58 K/uL (4.8-10.8)
[2020-11-12 06:33] LABS: BUN Creatinine Ratio 19.5 (10-20); Calcium 7.9 mg/dl (8.5-10.1); Creatinine Clr Calc Pharmacy 60.3 ml/min; Est GFR (African American) 91.4 ml/min; Est GFR (Non-African American) 78.8 ml/min; Potassium 3.7 mmol/L (3.5-5.1)
[2020-11-12] MEDS: ATORVASTATIN 40 MG TAB PO SCH (08:59)
[2020-11-12] MEDS: amLODIPine BESYLATE 5 MG TAB PO SCH (08:59)
--- NOTE | 2020-11-12 09:00 | Surgery Progress Note ---
Date of Service November 12, 2020 Assessment & Plan (1) Left groin mass: Plan: s/p incision and drainage of left groin abscess. Leukocytosis slowly improving. Continue dressing changes and IV antibiotics. No new recommendations. Admission and Anticipated Discharge Date Admission Date: November 10, 2020 Subjective Feels OK. Pain in left groin is controlled. Eating but less than usual. No new complaints. Nursing just changed outer dressing this morning. Physical Exam Constitutional: WD/WN, vitals as above Eyes: PERRL, conjunctivae normal, anicteric sclerae ENMT: external ear and nose normal, oropharynx normal Cardiovascular: RRR, no murmur, no edema Gastrointestinal (Abdomen): left groin with dry dressing, persistent induration, minimal drainage Musculoskeletal: Head/Neck/Chest: normocephalic and head atraumatic Neurologic: awake; no focal motor deficits Results & Data ([facility]) Vital Signs (Past 12 Hours) Vital Signs Temp Pulse Resp BP Pulse Ox 11/12/20 07:50 37.1 C 85 16 154/73 H 92 11/12/20 06:30 36.6 C 84 14 153/78 H 94 11/12/20 02:57 36.9 C 88 16 144/70 H 94 11/11/20 23:10 37.2 C 94 H 16 144/72 H 94 Laboratory Results Abnormal lab results 11/12/20 11/12/20 Range/Units 05:31 05:31 WBC 22.58 H (4.8-10.8) K/uL RBC 4.19 L (4.7-6.1) M/uL Hgb 12.6 L (14.0-18.0) g/dL Hct 37.6 L (42-52) % Plt Count 565 H (130-400) K/uL Neut # (Auto) 19.37 H (1.4-6.5) K/uL Lymph # (Auto) 1.17 L (1.2-3.4) K/uL [place] # (Auto) 1.81 H (0.11-0.59) K/uL Immature Gran # (Auto) 0.14 H (0.00-0.02) K/uL Sodium 132 L (136-145) mmol/L Glucose 120 H (70-99) mg/dl Calcium 7.9 L (8.5-10.1) mg/dl
[2020-11-12] MEDS: LACTATED RINGER'S 1,000 ML IV SCH (13:39)
[2020-11-13] MEDS: PIPERACILLIN/TAZOBACTAM 3.375 GM in DEXTROSE 5% 100 ML IV SCH ×3 (01:44→17:20)
[2020-11-13 05:58] LABS: Basophils # (auto) 0.03 K/uL (0-0.2); Basophils % (auto) 0.2 %; Eosinophils # (auto) 0.22 K/uL (0-0.5); Eosinophils % (auto) 1.3 %; Hemoglobin 12.5 g/dL (14.0-18.0); Immature Granulocytes # (auto) 0.16 K/uL (0.00-0.02); Immature Granulocytes % (auto) 0.9 %; Lymphocytes # (auto) 1.32 K/uL (1.2-3.4); Lymphocytes % (auto) 7.8 %; Mean Corpuscular Hemoglobin 29.9 pg (25-34); Mean Corpuscular Hgb Conc 33.8 g/dL (32-36); Mean Corpuscular Volume 88.5 fL (80-100); Mean Platelet Volume 8.6 fL (7.4-10.4); Monocytes # (auto) 1.52 K/uL (0.11-0.59); Monocytes % (auto) 8.9 %; Neutrophils # (auto) 13.76 K/uL (1.4-6.5); Neutrophils % (auto) 80.9 %; Platelet Count 509 K/uL (130-400); Red Blood Count 4.18 M/uL (4.7-6.1); White Blood Count 17.01 K/uL (4.8-10.8)
[2020-11-13 06:34] LABS: BUN Creatinine Ratio 14.9 (10-20); Calcium 8.1 mg/dl (8.5-10.1); Creatinine Clr Calc Pharmacy 58.4 ml/min; Est GFR (African American) 87.9 ml/min; Est GFR (Non-African American) 75.8 ml/min; Potassium 3.7 mmol/L (3.5-5.1)
[2020-11-13] MEDS: amLODIPine BESYLATE 5 MG TAB PO SCH (07:56)
[2020-11-13] MEDS: ATORVASTATIN 40 MG TAB PO SCH (07:56)
--- NOTE | 2020-11-13 10:26 | Surgery Progress Note ---
Date of Service November 13, 2020 Assessment & Plan (1) Left groin mass: Plan: s/p incision and drainage of left groin abscess. Leukocytosis slowly improving. Continue dressing changes and IV antibiotics. No new recommendations. Admission and Anticipated Discharge Date Admission Date: November 10, 2020 Subjective Feels OK. Pain in left groin is controlled - still feels a pressure in the area. Eating but less than usual. No new complaints. Nursing just changed outer dressing this morning. Physical Exam Constitutional: WD/WN, vitals as above Eyes: PERRL, conjunctivae normal, anicteric sclerae ENMT: external ear and nose normal, oropharynx normal Cardiovascular: RRR, no murmur, no edema Musculoskeletal: Head/Neck/Chest: normocephalic and head atraumatic Skin: left groin incision intact, minimal drainage on outer gauze dressings Neurologic: awake; no focal motor deficits Results & Data ([facility]) Vital Signs (Past 12 Hours) Vital Signs Temp Pulse Resp BP Pulse Ox 11/13/20 07:25 36.9 C 71 17 143/74 H 96 11/12/20 22:47 36.8 C 90 14 150/68 H 92 Laboratory Results Abnormal lab results 11/13/20 11/13/20 Range/Units 05:41 05:41 WBC 17.01 H (4.8-10.8) K/uL RBC 4.18 L (4.7-6.1) M/uL Hgb 12.5 L (14.0-18.0) g/dL Hct 37.0 L (42-52) % Plt Count 509 H (130-400) K/uL Neut # (Auto) 13.76 H (1.4-6.5) K/uL [place] # (Auto) 1.52 H (0.11-0.59) K/uL Immature Gran # (Auto) 0.16 H (0.00-0.02) K/uL Sodium 134 L (136-145) mmol/L Anion Gap 1.0 L (3-11) Glucose 112 H (70-99) mg/dl Calcium 8.1 L (8.5-10.1) mg/dl
[2020-11-13] MEDS: oxyCODONE/ACETAMINOPHEN 5mg/325mg TAB PO PRN ×2 (15:15→21:28)
[2020-11-14] MEDS: PIPERACILLIN/TAZOBACTAM 3.375 GM in DEXTROSE 5% 100 ML IV SCH ×2 (01:49→09:24)
[2020-11-14] MEDS: LACTATED RINGER'S 1,000 ML IV SCH ×2 (01:50→07:49)
[2020-11-14 06:03] LABS: Basophils # (auto) 0.07 K/uL (0-0.2); Basophils % (auto) 0.5 %; Eosinophils # (auto) 0.46 K/uL (0-0.5); Eosinophils % (auto) 3.1 %; Hematocrit (blood only) 38.9 % (42-52); Immature Granulocytes # (auto) 0.17 K/uL (0.00-0.02); Immature Granulocytes % (auto) 1.1 %; Lymphocytes # (auto) 1.54 K/uL (1.2-3.4); Lymphocytes % (auto) 10.2 %; Mean Corpuscular Hemoglobin 30.2 pg (25-34); Mean Corpuscular Hgb Conc 33.4 g/dL (32-36); Mean Corpuscular Volume 90.5 fL (80-100); Mean Platelet Volume 8.8 fL (7.4-10.4); Monocytes # (auto) 1.31 K/uL (0.11-0.59); Monocytes % (auto) 8.7 %; Neutrophils # (auto) 11.49 K/uL (1.4-6.5); Neutrophils % (auto) 76.4 %; Platelet Count 598 K/uL (130-400); RDW Coefficient of Variation 13.2 % (11.5-14.5); RDW Standard Deviation 43.8 fL (36.4-46.3); White Blood Count 15.04 K/uL (4.8-10.8)
[2020-11-14] MEDS ORDERED: MoRPHine SULFATE 4 MG/ML 1 ML CARP\\VIAL ONE (07:18)
[2020-11-14] MEDS ORDERED: MoRPHine SULFATE 4 MG/ML 1 ML CARP\\VIAL IV STA (07:32)
[2020-11-14] MEDS: amLODIPine BESYLATE 5 MG TAB PO SCH (07:46)
[2020-11-14] MEDS: ATORVASTATIN 40 MG TAB PO SCH (07:47)
--- NOTE | 2020-11-14 07:48 | Surgery Progress Note ---
Date of Service November 14, 2020 Assessment & Plan (1) Left groin mass: Plan: POD#3 washout of L groin abscess -WBC downtrending--> 15 today, patient afebrile -OR cultures growing streptococcus -Today wound evaluated at the bedside, skin sutures cut and nu-gauze packing removed. Erythema and induration much improved. Wound re-dressed with dry 4x4 gauze, ABD, and medipore tape. Wound healing well, no indication for vac at this time. Cedrick remains in place -Will check on patient later today, if doing well can anticipate discharge to home with plans to follow up in clinic this upcoming Saturday for wound check and possible cedrick drain removal. Will consult case management for wound care at home as well as ask RN's to perform dressing teaching with (will be dry 4x4 gauze, ABD pad, and medipore tape). Will send patient out on a course of oral abx to complete at home - Pt seen and examined with Dr. Lowery Admission and Anticipated Discharge Date Admission Date: November 10, 2020 Subjective Patient feeling okay this AM. Offers no complaints. Pain has been tolerable. He is eating a regular diet without issues. Physical Exam Physical Exam: awake/alert Constitutional: no acute distress Gastrointestinal (Abdomen): Left groin incision- skin sutures cut and skin open superficially, packing removed (serosang drainage noted). Induration present but much improved. Cedrick drain remains in place. Some tenderness noted to palpation Results & Data ([facility]) Vital Signs (Past 12 Hours) Vital Signs Temp Pulse Resp BP Pulse Ox 11/14/20 05:37 36.6 C 86 16 167/88 H 92 11/13/20 23:20 36.6 C 75 16 137/73 91 PG Care Time/CCT Total # of Minutes Spent Total Time Spent with Patient: Total time spent is greater than 50% in coordination of care (as documented) at patient's floor/unit and/or counseling patient: Coding Level of Care Code None Diagnoses Left groin mass R19.09
[2020-11-14] MEDS ORDERED: ACETAMINOPHEN 325 MG TAB PO PRN (07:50)
--- NOTE | 2020-11-15 10:17 | Discharge Summary ---
Date of Service November 15, 2020 Admission HPI Per Admitting Provider This is a 80-year-old male who was seen by Dr. Tellez in the outpatient clinic today for possible left inguinal hernia. The patient notes that approximately 10 days ago he had an incident where his dog ran out the door and the patient went to grab his dog. Following this incident the patient noted some pain in his left groin. He notes over the ensuing days he noticed groin swelling that became worse. He contacted his primary care provider who felt that the patient may have a hernia and therefore ultrasound was ordered. The ultrasound was performed which suggested hernia containing bowel and because of this the patient was referred to Dr. Tellez. He was seen by Dr. Tellez today where the patient felt that the area in question was getting larger and progressively worse. Patient does note that he has not had a bowel movement in over 1 week however he is pot passing flatus without difficulty. He is tolerating diet but does admit that his appetite is slightly decreased. He denies any nausea or v omiting. He denies any fevers, shakes, chills. He also denies any abdominal pain. He denies taking blood thinners other than a baby aspirin. The patient was referred for CT scan by Dr. Tellez today. This was completed and revealed an 8 x 6 x 6 cm cystic lesion in the left groin that was concerning for an abscess. There was also a right inguinal hernia containing a portion of the cecum however there is no evidence of bowel obstruction or free air. His appendix was normal. Because of the CT scan findings the patient was referred for direct admission but due to lack of bed availability he reported to the hospital through the emergency department I visited with the patient in the emergency department at approximate 8:00 PM at this time the patient was resting comfortably in bed in no distress. He did not have any pain other than some tenderness in the left groin with palpation. Principal Diagnosis left groin abscess Discharge Exam awake/alert Constitutional no acute distress Gastrointestinal (Abdomen) Left groin incision- skin sutures cut and skin open superficially, packing removed (serosang drainage noted). Induration present but much improved. [place] drain remains in place with serosang. drainage. Some tenderness noted to palpation Discharge Data Allergies Allergy/AdvReac Type Severity Reaction Status Date / Time No Known Allergies Allergy Unverified 11/10/20 10:30 Procedures Performed Operation Date: 11/11/20 08:20 Actual Procedures p Irrigation and Debridement of Left Groin with Packing(Left) - Ignacio Lowery MD, [facility] Hospital Course (1) Abscess of left groin: This is a 80yM who was evaluated in the outpatient clinic on 11/10/20 for a possible left inguinal hernia. Patient reports a history of his dog running out the door and when he went to grab the dog he noted some pain in the L groin and over the ensuing days that swelling and pain had become worse. On exam in the office there was concern for an incarcerated inguinal hernia and patient was sent to radiology to obtain a stat CT scan. The CT scan revealed an 8 x 6 x 6 cm cystic lesion in the left groin that was concerning for an abscess. There was also a right inguinal hernia containing a portion of the cecum however there is no evidence of bowel obstruction or free air. Due to limited bed availability in the hospital for direct admission the patient was asked to present through the ER for evaluation and subsequent admission. Labs revealed a WBC of 28. He was admitted to the surgical service, made NPO at midnight, and started on IV abx. He was booked for the OR the following day for exploration of L groin. On 11/11 the patient went to the OR with Dr. Lowery and underwent an irrigation and debridement of left groin abscess with wound packing and cedrick drain placement. The patient tolerated the procedure well, see op note for full details. The patient recovered in the PACU and was transferred to the med/surg unit in stable condition. He was provided a diet as tolerated and continued on IV abx. RN's to change outer dressing on POD#1 and POD#2. Pain controlled on prn medication. WBC improving. On POD#3 the nu-gauze packing was removed without iss ue. No indication for wound vac at this time as wound appeared to be healing well. Wound induration and erythema improved. An outer dry dressing was replaced with 4x4 gauze, ABD, and medipore tape. The patient tolerated this well and pain remained well controlled. His came into the hospital to learn dressing care. WBC 15 and patient afebrile. He was deemed stable for discharge on a course of oral abx. He was instructed to follow up in clinic in 2 days for wound check and cedrick drain removal. Total Time Total Time Spent Total Time Spent (In Minutes): 20 Discharge Plan Discharge Items Patient Disposition: Home - Self-Care Reason For Visit: GROIN ABSCESS Discharge Diagnosis: washout of left groin abscess Activity: Per Instructions section Lifting: No more than 10 pounds Bathing Comment: may shower; no soaking in tubs/pools Exercise/Sports: Wait until after follow-up appointment Driving/Machine Use: wait at least 3 days; no driving while taking narcotics for pain Non-emergency contact: Surgeon Call non-emergency contact if: you have any medication questions, your symptoms worsen, your pain is not controlled, your pain is worsening, you have a fever, your temperature is above 101.5, your wound has increased redness, your wound has increased drainage and your wound pain has increased Follow-up/Referrals: Ignacio Lowery MD, FACS [Surgeon] - 11/16/20 10:30 am ( follow up in clinic this upcoming Saturday11/16/20@1030) PCP,NO [Physician] - Diet: Regular Addtl Attending Provider Instructions: You may shower, let the soapy water run over your incision and pat it dry. No baths soaks or immersion in pools for now. Please change your surgical dressing daily with dry 4x4 gauze, ABD pad, and medipore tape. May cover cedrick drain with dry 4x4 gauze and tape and change daily. Please complete the full course of antibiotic prescribed to you Please call our office to schedule a follow up appointment with Dr. Lowery this upcoming Saturday (11/16/20) Pending Studies at Discharge: Yes Studies:: microbiology Stand-Alone Forms: My [facility] [employer], Smoking Cessation Medications and DC Order Prescriptions: New oxycodone-acetaminophen [Percocet] 5-325 mg tablet 1 - 2 tab PO .q4-6h PRN (Reason: pain, for initial therapy, max 6 tabs per day) Qty: 10 RF: 0 clindamycin HCl 300 mg capsule 600 mg PO BID 7 Days Qty: 28 RF: 0 Continued amlodipine 5 mg tablet 5 mg PO DAILY RF: 0 aspirin [Adult Aspirin Regimen] 81 mg tablet,delayed release (DR/EC) 81 mg PO DAILY RF: 0 atorvastatin 40 mg tablet 40 mg PO DAILY RF: 0 Discharge Orders: Discharge Order (Routine); Ordered 11/14/20 Ordered By: Vaishnavi Infante Admission Data Admit Date/Time: 11/10/20 20:09 Attending Provider: Ignacio Lowery Admit Provider: James Lilly Primary Care Provider: Betzaida Rainey Other Providers: [facility],Home Healthcare Other Interventions: Discharge Summary Assessment (RN) Last Done: 11/14/20 11:10 Coding Level of Care Code D/C DAY MANAGEMENT <30 MINS Diagnoses Abscess of left groin L02.214
== END 2020-11-14 14:39 | disposition home health service (06) | DRG 581 ==
LOC: ED 18:57 → 3E 20:09

== ENCOUNTER 2021-03-02 09:40 | Inpatient (IN) ==
--- NOTE | 2021-02-24 15:28 | Anesthesiology Consultation ---
Date of Service February 24, 2021 Assessment & Plan (1) Encounter for pre-operative examination: - COVID screening: Per assessment on 02/13: Travel screen negative, no known COVID-19 positive contacts or current COVID-19 related symptoms. Patient vaccin ated. Surgeon arranging preop COVID testing. Awaiting results. - S/P Left groin I&D with packing (11/11/20): Grade view 1, Diez #2, ETT 8.0 at [facility] Chart Review Chart Review: Acceptable Risk for Surgery (pending preop labs ) and Patient NOT seen in Pre Admission Testing History Surgery Operation Date: 03/02/21 10:00 Proposed Procedures p Open Sigmoid Colon Resection - Ignacio Lowery MD, FACS Height/Weight Height: 5 ft 6.5 in Weight: 68.946 kg Allergies Allergy/AdvReac Type Severity Reaction Status Date / Time No Known Allergies Allergy Verified 02/13/21 10:47 Medications Home Medications Medication Instructions Recorded Confirmed Last Taken amlodipine 5 mg tablet 10 mg PO QPM 11/08/20 02/13/21 Unknown aspirin 81 mg tablet,delayed 81 mg PO QPM 11/08/20 02/13/21 Unknown release (Adult Aspirin Regimen) atorvastatin 40 mg tablet 40 mg PO QPM 11/08/20 02/13/21 Unknown metronidazole 500 mg tablet 500 mg PO .COMPLEX #3 tab 02/03/21 02/13/21 Unknown neomycin 500 mg tablet 1 g PO .COMPLEX #6 tab 02/03/21 02/13/21 Unknown Past Medical History Medical History Carotid artery disease s/p right CEA (2013) with redo (2017) Diverticular disease Enterocutaneous fistula History of colon polyps History of TIA (transient ischemic attack) 2013 HLD (hyperlipidemia) HTN (hypertension) Pulmonary emphysema Per recent abdomen CT Past Family History Family History Mother Cancer Brother Cancer Myocardial infarction Past Surgical History Surgical History H/O carotid endarterectomy Redo Right CEA (2018) H/O tooth extraction 2019, 2018, 2017 H/O wisdom tooth extraction 1986 History of incision and drainage Irrigation and Debridement of Left Groin with Packing Dr. Lowery 11-11-2020 Hx of colonoscopy 2018 S/P carotid endarterectomy Right CEA (2013) Social History Smoking Status: Former smoker tobacco type: cigarettes Do You Dip or Chew Tobacco: No Smoking End Date: 1998 Hx Alcohol Use: No Alcohol type: beer and wine alcohol intake frequency: holidays/special occasions only Hx Substance Use: No substance use type: does not use Testing Electrocardiogram Date: 11/10/20 Findings: + ST @ (104) Chest X-Ray Date: 11/10/20 FINDINGS: No pneumothorax. No pleural effusions. The heart is normal in size. There is emphysema with vascular crowding at the lung bases. No new focal lung consolidations to suggest pneumonia. No evidence for pulmonary edema. IMPRESSION: Emphysema. Otherwise, no acute process within the chest.
[~2021-03-02 09:40] MED LIST changes: -AMLO-110 PO; -ASPI81TA28 PO; -ATOR-24 PO; +LR 15ML/HR IV SCH
[2021-03-02] MEDS ORDERED: ATROPINE SULFATE 0.1 MG/ML 10ML SYR IV PRN (11:45)
[2021-03-02] MEDS ORDERED: ePHEDrine sulfate 50 MG/ML AMP IV PRN (11:45)
[2021-03-02] MEDS ORDERED: ONDANSETRON INJ 2 MG/ML 2 ML VIAL IV PRN (11:45)
--- NOTE | 2021-03-02 11:55 | History & Physical Bridge Note ---
Date of Service March 02, 2021 History & Physical Bridge Note I have examined the patient, reviewed the History & Physical and in the interval since the performance of the History & Physical I have noted the following changes of clinical significance: no changes noted Off-and-on some purulent drainage at the Sunshine sites in left lower quadrant The area for some induration and there is an area of the previous Sunshine site indurated slightly red around the incision itself no drainage at this time the area itself probably about 4 cm or so in size rest of the abdomen is negative All questions were answered
[2021-03-02] MEDS ORDERED: ROCURONIUM BROMIDE 10 MG/ML 5 ML VIAL IV ONE ×5 (12:09→13:30)
[2021-03-02] MEDS ORDERED: PROPOFOL IV EMULSION 10 MG/ML 20 ML VIAL IV ONE (12:09)
[2021-03-02] MEDS ORDERED: LIDOCAINE 2% 2 ML VIAL/AMP(20MG/ML) INFIL ONE (12:09)
[2021-03-02] MEDS ORDERED: fentaNYL citrate 100 MCG/2 ML VIAL ONE ×2 (12:10→13:14)
[2021-03-02] MEDS ORDERED: ONDANSETRON INJ 2 MG/ML 2 ML VIAL ONE (13:14)
[2021-03-02] MEDS ORDERED: DEXAMETHASONE SOD INJ 4 MG/ML VIAL ONE (13:30)
[2021-03-02] MEDS ORDERED: PHENYLEPHRINE HCL 10 MG/ML VIAL ONE (13:31)
[2021-03-02] MEDS ORDERED: METHYLENE BLUE 0.5% 10 ML VIAL ONE (13:33)
--- NOTE | 2021-03-02 14:47 | Post Operative Brief Note ---
PG Immediate Post Op with CF Date of Surgery March 02, 2021 Pre & Post Diagnosis Operation Date: 03/02/21 11:35 Pre-Op Diagnosis: Enterocutaneous Fistula I identified the patient and participated in the time-out.: Yes Procedure Operation Date: 03/02/21 11:35 Actual Procedures p Open Sigmoid Colon Resection(Not Applicable) - Ignacio Lowery MD, FACS Surgeon Ignacio Lowery MD, FACS Neurological Physiotherapist b korey narayan Estimated Blood Loss 50 Findings Consistent with Post-Op Diagnosis Specimens Specimen Description: Culture: 1. Urine Culture Drains Hess Catheter, Raimundo-Aaron Drain and Sunshine Drain
--- NOTE | 2021-03-02 14:55 | Operative Report ---
Post Operative Report Pre & Post Diagnosis Operation Date: 03/02/21 11:35 Pre-Op Diagnosis: Enterocutaneous Fistula Post-Op Diagnosis: Diverticulitis, Abcess I identified the patient and participated in the time-out.: Yes Procedure Operation Date: 03/02/21 11:35 Actual Procedures p Open Sigmoid Colon Resection(Not Applicable) - Ignacio Lowery MD, FACS The patient was brought into the operating theater supine position general trach anesthesia Hess catheter been inserted the abdomen was prepped Betadine scrub solution properly draped systemic antibiotics on board a timeout was had the patient was identified we made an incision approximately 2-1/2 inches below the umbilicus linearly down to the symphysis pubis the patient was quite thin we were able then to get on linea alba easily and identified and entered the peritoneal cavity at this point we were able to palpate and get identified patient had a sigmoid colon that was extremely advanced tentatively adherent to the left lower quadrant wall in fact the patient has had a abscess in the left groin area that we drained approximately 2 months ago consistent with likely a follow-up abscess from an enterocutaneous fistula from the sigmoid colon the sigmoid colon was significant diverticular problem we were able then to divide the white line of Toldt taken almost up to the splenic flexure then we entered the retroperitoneal area down in the pelvic area on the left so we were able to dissect off this chronically inflamed tract that appeared to be: Almost to the dome of the bladder we used the electrocautery and sharp dissection to enter this chronically inflamed tissue. Once we were able to free it up we could identify that the indurated area in the sigmoid colon was strictly adherent to the almost the dome of the bladder there was some vegetable particles almost small amount of green vegetables this indicated the area process likely perforation once we were able to free this off the bladder the sigmoid colon as stated was quite redundant Bookwalter retractor was inserted we then reresected the sigmoid colon just at the peritoneal reflection using a right angle intes tinal clamp divided the mesentery in the resected the sigmoid colon approximately the descending area an area that was free of any diverticular disease with a KANCHAN stapler we would eventually freshened at a very up with another stapler firing the mesentery was divided between right angle clamps and ligated with 2-0 silk we identified the left ureter which was well away from any area that we were able to dissect. The proximal sigmoid line no resection was oversewed the staple line with 3-0 silk suture then we did a side to end anastomosis between the descending colon and rectal area with 3-0 silk outer layer 3-0 chromic in layers the anastomosis was checked for patency appears satisfactory I then placed a tongue of omentum in the area there was chronically inflamed on top of the bladder the area was approximately 4 cm x 4 cm we had given him some methylene blue although then we were well aware there was no evidence of any perforation into the bladder he is clinically but the methylene blue by the time we were done was not even in the Hess catheter. I elected to drain the pelvic area with a 19 Catalino drain that was brought out the left lower quadrant and down in the pelvis. I also checked the patient had a large right inguinal hernia that we knew ahead of time and there was no bowel contents obviously within no anything repairing this at this time the NG tube was positioned at 55 palpated in the stomach then we closed the peritoneum with 2-0 Vicryl suture continuous fashion the #1 PDS for anterior to the linea alba all bone continues PDS quarter inch Perry drain was placed subcutaneous katy for skin edges dressing was applied procedure was tolerated well by the patient estimate blood loss 50 cc AddendumB Liseth narayan was present throughout the procedure and helped the retraction exposure and wound closure Addendum talked to his Catherine at [phone] Surgeon Ignacio Lowery MD, FACS Sawmilling Operator sacha narayan Estimated Blood Loss 50 Findings Consistent with Post-Op Diagnosis Significant diverticular disease of the sigmoid colon with a fistulous track dome of the bladder retroperitoneal to the right groin area the area of induration in the sigmoid colon the bladder is approximately 4 cm there was no evidence of any perforation into the bladder and no active and no active abscess Specimens Sigmoid colon Drains 19 round Catalino in the pelvis Quarter inch Sunshine in the subcu on the incision Indications Enterocutaneous fistula Description of Procedure merda I attest to the content of the Intraoperative Record and any orders documented therein. Any exceptions are noted below.
[2021-03-02] MEDS ORDERED: GLYCOPYRROLATE 0.2 MG/ML VIAL ONE (15:02)
[2021-03-02] MEDS ORDERED: NEOSTIGMINE METHYLSULFATE 1 MG/ML 10ML VIAL ONE (15:02)
[2021-03-02] MEDS: fentaNYL citrate 100 MCG/2 ML VIAL IV PRN ×4 (15:04→15:19)
[2021-03-02] MEDS: HYDROmorphone INJ 1 MG/ML SYRINGE IV PRN ×6 (15:43→17:04)
--- NOTE | 2021-03-02 15:47 | Anesthesiology Progress Note ---
Date of Service March 02, 2021 Anesthesia Post Procedure Vital Signs Vital Signs: Temp Pulse Resp BP Pulse Ox 03/02/21 15:45 79 18 138/63 100 03/02/21 15:35 36.4 C L 77 18 142/63 H 100 03/02/21 15:25 76 18 147/62 H 100 03/02/21 15:15 78 18 145/74 H 100 03/02/21 15:05 78 18 144/64 H 100 03/02/21 14:57 36.6 C 84 18 113/81 95 03/02/21 10:06 37.0 C 90 18 155/67 H 95 Transfer of Care Handoff Completed per policy Notes Mental Status: alert / awake / arousable Patient Amnestic to Procedure: Yes Nausea / Vomiting: adequately controlled Pain: adequately controlled Airway Patency, RR, SpO2: stable & adequate BP & HR: stable & adequate Hydration State: stable & adequate Anesthetic Complications: no major complications apparent
[2021-03-02] MEDS ORDERED: NALOXONE HCL 0.4 MG/1 ML VIAL/CARP IV PRN (17:50)
[2021-03-02] MEDS ORDERED: MoRPHine SULFATE PCA 30 MG/30 ML IV PRN (17:50)
[2021-03-02] MEDS ORDERED: ACETAMINOPHEN 1000 MG/100 ML IV IV SCH (17:50)
[2021-03-02] MEDS: LACTATED RINGER'S 1,000 ML IV SCH (18:22)
[2021-03-02] MEDS: SODIUM CHLORIDE 0.9% 1000ML 1,000 ML IV SCH (18:23)
[2021-03-02] MEDS ORDERED: PNEUMOCOCCAL POLYSACCHARIDES 25 MCG/0.5 ML VIAL/SYR IM ONE (18:47)
[2021-03-02] MEDS: cefOXitin 2,000 MG in DEXTROSE 5% 50 ML IV SCH (19:52)
[2021-03-02] MEDS: ACETAMINOPHEN 1,000 MG/100 ML VIAL IV SCH (19:52)
[2021-03-02] MEDS: amLODIPine BESYLATE 5 MG TAB PO SCH (21:40)
[2021-03-02] MEDS: ASPIRIN 81 MG ECTAB PO SCH (21:41)
[2021-03-03] MEDS: cefOXitin 2,000 MG in DEXTROSE 5% 50 ML IV SCH ×3 (01:18→14:26)
[2021-03-03] MEDS: LACTATED RINGER'S 1,000 ML IV SCH ×3 (01:18→18:24)
[2021-03-03] MEDS: ACETAMINOPHEN 1,000 MG/100 ML VIAL IV SCH ×3 (03:20→20:17)
[2021-03-03 06:55] LABS: Basophils # (auto) 0.01 K/uL (0-0.2); Basophils % (auto) 0.1 %; Hematocrit (blood only) 40.2 % (42-52); Hemoglobin 13.3 g/dL (14.0-18.0); Immature Granulocytes # (auto) 0.05 K/uL (0.00-0.02); Immature Granulocytes % (auto) 0.3 %; Lymphocytes # (auto) 0.81 K/uL (1.2-3.4); Lymphocytes % (auto) 4.5 %; Mean Corpuscular Hemoglobin 29.8 pg (25-34); Mean Corpuscular Hgb Conc 33.1 g/dL (32-36); Mean Corpuscular Volume 90.1 fL (80-100); Mean Platelet Volume 8.9 fL (7.4-10.4); Monocytes # (auto) 1.48 K/uL (0.11-0.59); Monocytes % (auto) 8.3 %; Neutrophils # (auto) 15.58 K/uL (1.4-6.5); Neutrophils % (auto) 86.8 %; Platelet Count 392 K/uL (130-400); RDW Coefficient of Variation 14.2 % (11.5-14.5); RDW Standard Deviation 47.2 fL (36.4-46.3); Red Blood Count 4.46 M/uL (4.7-6.1); White Blood Count 17.93 K/uL (4.8-10.8)
[2021-03-03 07:26] LABS: BUN Creatinine Ratio 30.1 (10-20); Calcium 8.6 mg/dl (8.5-10.1); Est GFR (African American) 63.2 ml/min; Est GFR (Non-African American) 54.6 ml/min; Potassium 4.5 mmol/L (3.5-5.1)
[2021-03-03] MEDS: HEPARIN SOD 5,000 UNIT/0.5 ML VIAL SQ SCH ×2 (08:20→20:23)
--- NOTE | 2021-03-03 08:22 | Surgery Progress Note ---
Date of Service March 03, 2021 Assessment & Plan (1) Enterocutaneous fistula: Plan: POD 1 sigmoid resection for diverticular fistula seen with Dr. Loewry d/c NG keep sims ambulate LANDING SCALER subQ heparin can have sips decrease IVF to 100 cc/hr Admission and Anticipated Discharge Date Admission Date: March 02, 2021 Subjective no complaints, more alert today-felt "out of it" yesterday Physical Exam Gastrointestinal (Abdomen): Inspection/Auscultation: + abdominal surgical incision (dry, cedrick in place) and + abdominal surgical drain present (Catalino 50 cc); abdomen not distended UOP 500 cc overnight Results & Data ([facility]) Vital Signs (Past 12 Hours) Vital Signs Temp Pulse Resp BP BP Pulse Ox 03/03/21 07:58 36.6 C 89 18 157/65 H 96 03/03/21 03:07 37.1 C 71 12 140/56 L 96 03/02/21 22:55 36.7 C 82 16 161/70 H 96 03/02/21 21:37 76 149/68 H 03/02/21 20:20 37.4 C 85 16 144/51 H 97 PG Care Time/CCT Total # of Minutes Spent Total Time Spent with Patient: Total time spent is greater than 50% in coordination of care (as documented) at patient's floor/unit and/or counseling patient: Coding Level of Care Code None 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
[2021-03-03] MEDS: SODIUM CHLORIDE 0.9% 1000ML 1,000 ML IV SCH (18:23)
[2021-03-03] MEDS: amLODIPine BESYLATE 5 MG TAB PO SCH (20:22)
[2021-03-03] MEDS: ASPIRIN 81 MG ECTAB PO SCH (20:22)
[2021-03-04] MEDS: LACTATED RINGER'S 1,000 ML IV SCH ×2 (04:27→14:40)
[2021-03-04] MEDS: ACETAMINOPHEN 1,000 MG/100 ML VIAL IV SCH ×3 (04:27→20:51)
--- NOTE | 2021-03-04 05:00 | Surgery Progress Note ---
Date of Service March 04, 2021 Assessment & Plan (1) Enterocutaneous fistula: Plan: Status post sigmoid colon resection on 03/02/2021 (POD #2) Surgical pathology is pending Continue IV fluid for hydration until oral intake can be advanced Maintain n.p.o. status until return of bowel function Encourage use of incentive spirometry Increase ambulation as able Continue analgesics Continue antiemetics Follow up on a.m. labs when available; patient was noted to have leukocytosis on yesterday's labs Subcutaneous heparin is in place for DVT prevention Admission and Anticipated Discharge Date Admission Date: March 02, 2021 Supervising Physician Co-Signing Physician Notes I personally saw and evaluated the patient with James Lilly PA-C and agree with the assessment and plan. Start clears Leave Hess today, will remove in AM tomorrow Pain control with ESTHETICIAN FACIALIST Encourage ambulation/IS Subjective Patient is resting comfortably in bed. He notes his pain is well controlled. Since his surgery he has not had a bowel movement or passed any flatus. He d enies any nausea or vomiting. He denies any shortness of breath. He denies any fevers, shakes, chills. Physical Exam Gastrointestinal (Abdomen): His abdomen has mild distention. There is appropriate pain with palpation near surgical incision. Patient's incision is intact with katy closed over a [place] drain. There is some serosanguineous drainage from the Nahant. A DAGOBERTO drain is in place and has drained approximately 60 cc of serosanguineous fluid since his surgery. Results & Data ([facility]) Vital Signs (Past 12 Hours) Vital Signs Temp Pulse Resp BP Pulse Ox 03/04/21 03:12 36.9 C 97 H 16 153/82 H 91 03/03/21 23:03 37.2 C 90 17 143/72 H 93 03/03/21 20:22 36.6 C 95 H 20 159/73 H 91 PG Care Time/CCT Total # of Minutes Spent Total Time Spent with Patient: Total time spent is greater than 50% in coordination of care (as documented) at patient's floor/unit and/or counseling patient: Coding Level of Care Code None 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
[2021-03-04 07:09] LABS: Basophils # (auto) 0.02 K/uL (0-0.2); Basophils % (auto) 0.2 %; Eosinophils # (auto) 0.03 K/uL (0-0.5); Eosinophils % (auto) 0.2 %; Hematocrit (blood only) 37.8 % (42-52); Hemoglobin 12.8 g/dL (14.0-18.0); Immature Granulocytes # (auto) 0.03 K/uL (0.00-0.02); Immature Granulocytes % (auto) 0.2 %; Lymphocytes # (auto) 1.32 K/uL (1.2-3.4); Lymphocytes % (auto) 10.4 %; Mean Corpuscular Hemoglobin 29.8 pg (25-34); Mean Corpuscular Hgb Conc 33.9 g/dL (32-36); Mean Corpuscular Volume 87.9 fL (80-100); Mean Platelet Volume 8.8 fL (7.4-10.4); Monocytes # (auto) 0.85 K/uL (0.11-0.59); Monocytes % (auto) 6.7 %; Neutrophils # (auto) 10.48 K/uL (1.4-6.5); Neutrophils % (auto) 82.3 %; Platelet Count 334 K/uL (130-400); RDW Standard Deviation 45.2 fL (36.4-46.3); White Blood Count 12.73 K/uL (4.8-10.8)
[2021-03-04 07:58] LABS: BUN Creatinine Ratio 20.2 (10-20); Calcium 8.4 mg/dl (8.5-10.1); Creatinine Clr Calc Pharmacy 60.6 ml/min; Est GFR (Non-African American) 81.1 ml/min; Potassium 3.9 mmol/L (3.5-5.1)
[2021-03-04] MEDS: HEPARIN SOD 5,000 UNIT/0.5 ML VIAL SQ SCH ×2 (09:48→20:53)
[2021-03-04] MEDS: SODIUM CHLORIDE 0.9% 1000ML 1,000 ML IV SCH (18:47)
[2021-03-04] MEDS: ASPIRIN 81 MG ECTAB PO SCH (20:52)
[2021-03-04] MEDS: amLODIPine BESYLATE 5 MG TAB PO SCH (20:52)
[2021-03-05] MEDS: LACTATED RINGER'S 1,000 ML IV SCH ×3 (01:01→19:50)
[2021-03-05] MEDS: ACETAMINOPHEN 1,000 MG/100 ML VIAL IV SCH ×3 (03:50→19:49)
--- NOTE | 2021-03-05 05:44 | Surgery Progress Note ---
Date of Service March 05, 2021 Assessment & Plan (1) Enterocutaneous fistula: Plan: Status post sigmoid colon resection on 03/02/2021 (POD #3) Surgical pathology is pending Continue IV fluid for hydration until oral intake is adequate Continue n.p.o. status until return of bowel function Continue use of incentive spirometry Ambulate as able Continue analgesics Continue antiemetics Subcutaneous heparin is in place for DVT prevention Admission and Anticipated Discharge Date Admission Date: March 02, 2021 Supervising Physician Co-Signing Physician Notes I personally saw and evaluated the patient with James Lilly PA-C and agree with the assessment and plan. Keep on clears, no bowel function yet D/C Hess D/C COMMUNITY RELATIONS SPECIALIST, start PO pain meds Encourage ambulation/IS Subjective Patient is resting comfortably in bed. He denies any shortness of breath. He denies any fevers, shakes, chills. He notes his abdominal pain is currently well controlled. He denies any nausea vomiting. Since surgery he has not had any bowel movement or passed any flatus. Physical Exam Gastrointestinal (Abdomen): Abdomen is mildly distended. Incision is intact with katy over [place] drain without signs of infection. Patient has appropriate tenderness at surgical incision. Results & Data ([facility]) Vital Signs (Past 12 Hours) Vital Signs Temp Pulse Resp BP Pulse Ox 03/05/21 01:15 EST 36.8 C 89 18 143/71 H 89 L 03/04/21 22:36 36.7 C 81 20 132/75 93 PG Care Time/CCT Total # of Minutes Spent Total Time Spent with Patient: Total time spent is greater than 50% in coordination of care (as documented) at patient's floor/unit and/or counseling patient: Coding Level of Care Code None 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
[2021-03-05 07:04] LABS: Basophils # (auto) 0.02 K/uL (0-0.2); Basophils % (auto) 0.2 %; Eosinophils # (auto) 0.23 K/uL (0-0.5); Hematocrit (blood only) 38.6 % (42-52); Hemoglobin 12.9 g/dL (14.0-18.0); Immature Granulocytes # (auto) 0.02 K/uL (0.00-0.02); Immature Granulocytes % (auto) 0.2 %; Lymphocytes % (auto) 10.3 %; Mean Corpuscular Hemoglobin 29.7 pg (25-34); Mean Corpuscular Hgb Conc 33.4 g/dL (32-36); Mean Corpuscular Volume 88.9 fL (80-100); Mean Platelet Volume 9.4 fL (7.4-10.4); Monocytes # (auto) 0.74 K/uL (0.11-0.59); Monocytes % (auto) 6.4 %; Neutrophils % (auto) 80.9 %; Platelet Count 338 K/uL (130-400); RDW Coefficient of Variation 13.7 % (11.5-14.5); RDW Standard Deviation 45.4 fL (36.4-46.3); Red Blood Count 4.34 M/uL (4.7-6.1); White Blood Count 11.61 K/uL (4.8-10.8)
[2021-03-05 07:54] LABS: BUN Creatinine Ratio 12.5 (10-20); Calcium 8.7 mg/dl (8.5-10.1); Creatinine Clr Calc Pharmacy 67.5 ml/min; Est GFR (African American) 98.3 ml/min; Est GFR (Non-African American) 84.8 ml/min; Potassium 3.6 mmol/L (3.5-5.1)
[2021-03-05] MEDS ORDERED: oxyCODONE HCL IR 5 MG TAB (IMMEDIATE RELEASE) PO PRN (08:18)
[2021-03-05] MEDS ORDERED: MoRPHine SULFATE 4 MG/ML 1 ML CARP\\VIAL IV PRN (08:18)
[2021-03-05] MEDS: HEPARIN SOD 5,000 UNIT/0.5 ML VIAL SQ SCH ×2 (08:32→20:09)
[2021-03-05] MEDS: SODIUM CHLORIDE 0.9% 1000ML 1,000 ML IV SCH (13:59)
[2021-03-05] MEDS: ASPIRIN 81 MG ECTAB PO SCH (20:08)
[2021-03-05] MEDS: amLODIPine BESYLATE 5 MG TAB PO SCH (20:09)
[2021-03-06] MEDS: ONDANSETRON INJ 2 MG/ML 2 ML VIAL IV PRN ×2 (00:32→08:48)
[2021-03-06] MEDS: ACETAMINOPHEN 1,000 MG/100 ML VIAL IV SCH ×3 (04:10→19:57)
[2021-03-06] MEDS: LACTATED RINGER'S 1,000 ML IV SCH ×2 (05:53→17:47)
--- NOTE | 2021-03-06 10:59 | Surgery Progress Note ---
Date of Service March 06, 2021 Assessment & Plan (1) Enterocutaneous fistula: Plan: POD 4 sigmoid colectomy will check KUB bladder scan--may need to replace sims Admission and Anticipated Discharge Date Admission Date: March 02, 2021 Supervising Physician Co-Signing Physician Notes I personally saw and evaluated the patient with Felipe Childers PA-C and agree with the assessment and plan. Make NPO, he has ileus Pain control PRN NGT if continues with emesis Encourage ambulation/IS Subjective some flatus but N/V overnight, no BM, having urinary frequency Physical Exam Gastrointestinal (Abdomen): Inspection/Auscultation: + abdomen distended, + abdominal surgical incision (dry, no erythema) and + abdominal surgical drain present (serous) Results & Data ([facility]) Vital Signs (Past 12 Hours) Vital Signs Temp Pulse Resp BP Pulse Ox 03/06/21 07:25 36.6 C 95 H 16 145/78 H 93 03/05/21 23:59 36.8 C 96 H 12 166/88 H 92 PG Care Time/CCT Total # of Minutes Spent Total Time Spent with Patient: Total time spent is greater than 50% in coordination of care (as documented) at patient's floor/unit and/or counseling patient: Coding Level of Care Code None 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
[2021-03-06] MEDS: HEPARIN SOD 5,000 UNIT/0.5 ML VIAL SQ SCH ×2 (11:56→20:18)
--- NOTE | 2021-03-06 13:24 | XRay Report ---
KUB CLINICAL HISTORY: Postoperative nausea and vomiting. COMPARISON STUDY: CT of the abdomen and pelvis January 27, 2021. FINDINGS: Left lower quadrant surgical drain is in place. Suspected Newton drain within the laparoto my is noted. There is moderate gaseous distention of small and large bowel. No unexpected radiopaque foreign bodies are identified. IMPRESSION: Moderate gaseous distention of small and large bowel. This favors an ileus. A bowel obst ruction could appear similar although is considered less likely. ACT 112: Negative or not required by law. Electronically signed by: Da Quan M.D. 03/06/2021 1:22 PM
[2021-03-06] MEDS: SODIUM CHLORIDE 0.9% 1000ML 1,000 ML IV SCH (17:44)
[2021-03-06] MEDS: amLODIPine BESYLATE 5 MG TAB PO SCH (20:19)
[2021-03-06] MEDS: ASPIRIN 81 MG ECTAB PO SCH (20:19)
[2021-03-07] MEDS: LACTATED RINGER'S 1,000 ML IV SCH (03:07)
[2021-03-07] MEDS: ONDANSETRON INJ 2 MG/ML 2 ML VIAL IV PRN (03:31)
[2021-03-07] MEDS: ACETAMINOPHEN 1,000 MG/100 ML VIAL IV SCH ×3 (04:05→20:35)
[2021-03-07] MEDS ORDERED: ONDANSETRON INJ 2 MG/ML 2 ML VIAL IV STA (06:10)
--- NOTE | 2021-03-07 06:41 | Communication Note ---
Date of Service: March 07, 2021 I was called by nurse as patient was having increased nausea vomiting. Patient was given Zofran. I visited with the patient at bedside approximately 30 minutes later and he notes that his nausea vomiting has been improved. Nurse also notified that patient was having increased output from his DAGOBERTO drain. This was inspected and was noted to have a large amount of serous fluid in it. Patient is currently n.p.o. we will keep him as such. Will await a.m. labs with further determinations about his care to be made.
[2021-03-07 07:05] LABS: BUN Creatinine Ratio 17.3 (10-20); Calcium 8.9 mg/dl (8.5-10.1); Creatinine Clr Calc Pharmacy 44.4 ml/min; Est GFR (African American) 65.8 ml/min; Est GFR (Non-African American) 56.8 ml/min; Potassium 3.5 mmol/L (3.5-5.1)
[2021-03-07 07:17] LABS: Basophils # (auto) 0.02 K/uL (0-0.2); Basophils % (auto) 0.1 %; Eosinophils # (auto) 0.01 K/uL (0-0.5); Eosinophils % (auto) 0.1 %; Hematocrit (blood only) 47.3 % (42-52); Hemoglobin 16.2 g/dL (14.0-18.0); Immature Granulocytes # (auto) 0.06 K/uL (0.00-0.02); Immature Granulocytes % (auto) 0.3 %; Lymphocytes # (auto) 1.47 K/uL (1.2-3.4); Lymphocytes % (auto) 7.6 %; Mean Corpuscular Hemoglobin 30.2 pg (25-34); Mean Corpuscular Hgb Conc 34.2 g/dL (32-36); Mean Corpuscular Volume 88.1 fL (80-100); Mean Platelet Volume 9.7 fL (7.4-10.4); Monocytes # (auto) 0.75 K/uL (0.11-0.59); Monocytes % (auto) 3.9 %; Neutrophils # (auto) 16.91 K/uL (1.4-6.5); Platelet Count 481 K/uL (130-400); RDW Coefficient of Variation 13.9 % (11.5-14.5); RDW Standard Deviation 44.9 fL (36.4-46.3); Red Blood Count 5.37 M/uL (4.7-6.1); White Blood Count 19.22 K/uL (4.8-10.8)
[2021-03-07] MEDS: HEPARIN SOD 5,000 UNIT/0.5 ML VIAL SQ SCH ×2 (08:18→20:39)
--- NOTE | 2021-03-07 08:39 | Surgery Progress Note ---
Date of Service March 07, 2021 Assessment & Plan (1) Enterocutaneous fistula: Plan: POD 5 sigmoid colectomy NG tube was not placed yesterday, apparently there was some confusion about the order being prn bowel function is returning, hold on NG for now continue sips, ambulate Admission and Anticipated Discharge Date Admission Date: March 02, 2021 Subjective BM x 4, some nausea this AM, vomited x1 Physical Exam Gastrointestinal (Abdomen): Inspection/Auscultation: + abdomen distended (less), + abdominal surgical incision (no erythema) and + abdominal surgical drain present (serous, 70 cc) Percussion/Palpation: abdomen soft Results & Data (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
[2021-03-07] MEDS: D5W AND 1/2NSS + 20MEQ KCL 20 MEQ/1,000 ML BAG IV SCH ×2 (13:30→19:22)
[2021-03-07] MEDS: SODIUM CHLORIDE 0.9% 1000ML 1,000 ML IV SCH (19:22)
[2021-03-07] MEDS: amLODIPine BESYLATE 5 MG TAB PO SCH (20:38)
[2021-03-07] MEDS: ASPIRIN 81 MG ECTAB PO SCH (20:38)
[2021-03-08] MEDS: D5W AND 1/2NSS + 20MEQ KCL 20 MEQ/1,000 ML BAG IV SCH ×3 (03:32→19:53)
[2021-03-08] MEDS: ACETAMINOPHEN 1,000 MG/100 ML VIAL IV SCH (03:32)
--- NOTE | 2021-03-08 07:42 | Surgery Progress Note ---
Date of Service March 08, 2021 Assessment & Plan (1) Enterocutaneous fistula: Plan: POD 6 sigmoid colectomy start on clears labs pending Admission and Anticipated Discharge Date Admission Date: March 02, 2021 Supervising Physician Co-Signing Physician Notes I personally saw and evaluated the patient with Felipe Childers PA-C and agree with the assessment and plan. Ileus not a complication of surgery, resolving Trial clears Pain control PRN Encourage ambulation/IS Subjective no further N/V, bowels moving Physical Exam Gastrointestinal (Abdomen): Inspection/Auscultation: + abdomen distended (less), + abdominal surgical incision (dressing dry) and + abdominal surgical drain present (50 cc per shift) Percussion/Palpation: abdomen soft Results & Data ([facility]) Vital Signs (Past 12 Hours) Vital Signs Temp Pulse Resp BP Pulse Ox 03/08/21 07:27 36.5 C 85 16 148/72 H 95 03/07/21 22:55 37.0 C 82 18 134/70 90 PG Care Time/CCT Total # of Minutes Spent Total Time Spent with Patient: Total time spent is greater than 50% in coordination of care (as documented) at patient's floor/unit and/or counseling patient: Coding Level of Care Code None 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
[2021-03-08] MEDS: HEPARIN SOD 5,000 UNIT/0.5 ML VIAL SQ SCH ×2 (08:49→19:54)
[2021-03-08 08:50] LABS: Basophils # (auto) 0.02 K/uL (0-0.2); Basophils % (auto) 0.1 %; Eosinophils # (auto) 0.28 K/uL (0-0.5); Eosinophils % (auto) 1.7 %; Hematocrit (blood only) 40.8 % (42-52); Hemoglobin 14.1 g/dL (14.0-18.0); Immature Granulocytes # (auto) 0.05 K/uL (0.00-0.02); Immature Granulocytes % (auto) 0.3 %; Lymphocytes % (auto) 8.7 %; Mean Corpuscular Hemoglobin 29.9 pg (25-34); Mean Corpuscular Hgb Conc 34.6 g/dL (32-36); Mean Corpuscular Volume 86.6 fL (80-100); Mean Platelet Volume 9.2 fL (7.4-10.4); Monocytes # (auto) 1.03 K/uL (0.11-0.59); Monocytes % (auto) 6.4 %; Neutrophils # (auto) 13.31 K/uL (1.4-6.5); Neutrophils % (auto) 82.8 %; Platelet Count 483 K/uL (130-400); RDW Coefficient of Variation 14.2 % (11.5-14.5); Red Blood Count 4.71 M/uL (4.7-6.1); White Blood Count 16.09 K/uL (4.8-10.8)
[2021-03-08 09:10] LABS: BUN Creatinine Ratio 23.6 (10-20); Calcium 8.6 mg/dl (8.5-10.1); Creatinine Clr Calc Pharmacy 49.8 ml/min; Est GFR (African American) 75.6 ml/min; Est GFR (Non-African American) 65.2 ml/min; Potassium 3.1 mmol/L (3.5-5.1)
[2021-03-08] MEDS: SODIUM CHLORIDE 0.9% 1000ML 1,000 ML IV SCH (19:16)
[2021-03-08] MEDS: ASPIRIN 81 MG ECTAB PO SCH (19:54)
[2021-03-08] MEDS: amLODIPine BESYLATE 5 MG TAB PO SCH (19:54)
[2021-03-08] MEDS ORDERED: ACETAMINOPHEN 325 MG TAB PO PRN (23:40)
[2021-03-09] MEDS: D5W AND 1/2NSS + 20MEQ KCL 20 MEQ/1,000 ML BAG IV SCH (03:56)
--- NOTE | 2021-03-09 08:00 | Surgery Progress Note ---
Date of Service March 09, 2021 Assessment & Plan (1) Enterocutaneous fistula: Plan: POD 7 sigmoid colectomy continues to progress advance to full liquids Admission and Anticipated Discharge Date Admission Date: March 02, 2021 Supervising Physician Co-Signing Physician Notes I personally saw and evaluated the patient with Felipe Childers PA-C and agree with the assessment and plan. Ileus not a complication of surgery, resolving Advance to fulls Pain control PRN Encourage ambulation/IS Subjective bowels moving, no nausea, ambulating halls Physical Exam Gastrointestinal (Abdomen): Inspection/Auscultation: + abdomen distended (less) and + abdominal surgical drain present (serous 20 cc overnight) Percussion/Palpation: abdomen soft Results & Data ([facility]) Vital Signs (Past 12 Hours) Vital Signs Temp Pulse Resp BP BP Pulse Ox 03/09/21 07:00 36.9 C 88 14 135/72 95 03/08/21 22:49 36.4 C L 86 18 153/70 H 93 PG Care Time/CCT Total # of Minutes Spent Total Time Spent with Patient: Total time spent is greater than 50% in coordination of care (as documented) at patient's floor/unit and/or counseling patient: Coding Level of Care Code None 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
[2021-03-09] MEDS ORDERED: POTASSIUM CHLORIDE CRTAB 20 MEQ TABCR PO STA (08:01)
[2021-03-09] MEDS: THIAMINE HCL 100 MG TAB PO SCH (08:42)
[2021-03-09] MEDS: HEPARIN SOD 5,000 UNIT/0.5 ML VIAL SQ SCH ×2 (08:45→21:07)
[2021-03-09 12:30] LABS: Basophils # (auto) 0.04 K/uL (0-0.2); Basophils % (auto) 0.3 %; Eosinophils # (auto) 0.33 K/uL (0-0.5); Eosinophils % (auto) 2.6 %; Hematocrit (blood only) 40.8 % (42-52); Hemoglobin 13.8 g/dL (14.0-18.0); Immature Granulocytes # (auto) 0.09 K/uL (0.00-0.02); Immature Granulocytes % (auto) 0.7 %; Lymphocytes # (auto) 1.26 K/uL (1.2-3.4); Mean Corpuscular Hemoglobin 29.8 pg (25-34); Mean Corpuscular Hgb Conc 33.8 g/dL (32-36); Mean Corpuscular Volume 88.1 fL (80-100); Monocytes # (auto) 0.94 K/uL (0.11-0.59); Monocytes % (auto) 7.5 %; Neutrophils # (auto) 9.93 K/uL (1.4-6.5); Neutrophils % (auto) 78.9 %; Platelet Count 441 K/uL (130-400); RDW Standard Deviation 45.2 fL (36.4-46.3); Red Blood Count 4.63 M/uL (4.7-6.1); White Blood Count 12.59 K/uL (4.8-10.8)
[2021-03-09 13:30] LABS: BUN Creatinine Ratio 18.3 (10-20); Calcium 8.3 mg/dl (8.5-10.1); Creatinine Clr Calc Pharmacy 66.7 ml/min; Est GFR (African American) 97.8 ml/min; Est GFR (Non-African American) 84.4 ml/min; Potassium 3.7 mmol/L (3.5-5.1)
[2021-03-09] MEDS: amLODIPine BESYLATE 5 MG TAB PO SCH (21:05)
[2021-03-09] MEDS: POTASSIUM CHLORIDE CRTAB 20 MEQ TABCR PO SCH (21:05)
[2021-03-09] MEDS: ASPIRIN 81 MG ECTAB PO SCH (21:06)
--- NOTE | 2021-03-10 07:50 | Surgery Progress Note ---
Date of Service March 10, 2021 Assessment & Plan (1) Enterocutaneous fistula: Plan: POD 8 sigmoid colectomy home today if tolerates low fiber diet theo drain removed f/u next week for staple removal Admission and Anticipated Discharge Date Admission Date: March 02, 2021 Subjective tolerating full liquids, less BMs Physical Exam Gastrointestinal (Abdomen): Inspection/Auscultation: + abdominal surgical incision (minimal drainage from lower incision) and + abdominal surgical drain present (serous); abdomen not distended Percussion/Palpation: abdomen soft Results & Data ([facility]) Vital Signs (Past 12 Hours) Vital Signs Temp Pulse Resp BP Pulse Ox 03/09/21 22:48 36.6 C 84 17 165/65 H 95 PG Care Time/CCT Total # of Minutes Spent Total Time Spent with Patient: Total time spent is greater than 50% in coordination of care (as documented) at patient's floor/unit and/or counseling patient: Coding Level of Care Code None 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
[2021-03-10] MEDS: THIAMINE HCL 100 MG TAB PO SCH (10:28)
[2021-03-10] MEDS: POTASSIUM CHLORIDE CRTAB 20 MEQ TABCR PO SCH (10:28)
[2021-03-10] MEDS: HEPARIN SOD 5,000 UNIT/0.5 ML VIAL SQ SCH (10:29)
--- NOTE | 2021-03-14 06:46 | Discharge Summary ---
Date of Service March 14, 2021 Admission HPI Per Admitting Provider enterocutaneous fistula Principal Diagnosis enterocutaneous fistula Discharge Data Allergies Allergy/AdvReac Type Severity Reaction Status Date / Time No Known Allergies Allergy Verified 03/02/21 09:26 Procedures Performed Operation Date: 03/02/21 11:35 Actual Procedures p Open Sigmoid Colon Resection(Not Applicable) - Ignacio Lowery MD, FACS Total Time Total Time Spent Total Time Spent (In Minutes): 35 Discharge Plan Discharge Items Patient Disposition: Home - Home Health Services Reason For Visit: Enterocutaneous Fistula Discharge Diagnosis: open sigmoid colon resection Activity: Per Instructions section Lifting: No more than 10 pounds Bathing Comment: may shower; no soaking in tubs/pools Exercise/Sports: Wait until after follow-up appointment Driving/Machine Use: no driving while taking narcotics for pain Non-emergency contact: Surgeon Call non-emergency contact if: you have any medication questions, your symptoms worsen, your pain is not controlled, your pain is worsening, your pain is concerning for you, you have a fever, your temperature is above 101.5, your wound has increased redness, your wound has increased drainage and your wound pain has increased Follow-up/Referrals: Ignacio Lowery MD, FACS [Surgeon] - 03/17/21 9:45 am (Please call to schedule follow up in clinic within 1 week) Betzaida Rainey CRNP [Primary Care Provider] - 03/13/21 1:50 pm Diet: Low Fiber Diet Comment: low fiber diet for a few days until BMs are more formed Addtl Attending Provider Instructions: You may change the dressing daily with dry gauze, when drainage stops you can leave bandage off. You may purchase Tylenol over the counter if needed for pain control. Tylenol 650mg orally every 4-6 hours, as needed for pain. Do not exceed >3grams of Acetaminophen within a 24 hour time period. Pending Studies at Discharge: Yes Studies:: surgical pathology Stand-Alone Forms: My [facility] [employer] Smoking Cessation Medications and DC Order Prescriptions: New oxycodone 5 mg tablet 5 mg PO Q4H Qty: 10 RF: 0 Continued amlodipine 5 mg tablet 10 mg PO QPM RF: 0 aspirin [Adult Aspirin Regimen] 81 mg tablet,delayed release (DR/EC) 81 mg PO QPM RF: 0 atorvastatin 40 mg tablet 40 mg PO QPM RF: 0 Discontinued metronidazole 500 mg tablet 500 mg PO .COMPLEX Qty: 3 RF: 0 neomycin 500 mg tablet 1 g PO .COMPLEX Qty: 6 RF: 0 Discharge Orders: Discharge Order (Routine); Ordered 03/10/21 Ordered By: Felipe Michael/Other Patient Handouts: Low-Fiber Diet Admission Data Admit Date/Time: 03/02/21 14:56 Attending Provider: Ignacio Lowery Admit Provider: Ignacio Lowery Primary Care Provider: Betzaida Rainey Other Providers: [place]Home Care Other Interventions: Discharge Summary Assessment (RN) Last Done: 03/10/21 11:06 Coding Level of Care Code D/C DAY MANAGEMENT >30 MINS Time Spent (min) 35
== END 2021-03-10 14:35 | disposition home health service (06) | DRG 330 ==
LOC: ASU 09:40 → 3N 14:56

== ENCOUNTER 2021-08-03 08:17 | Observation (INO) ==
--- NOTE | 2021-08-01 10:16 | Anesthesiology Consultation ---
Date of Service August 01, 2021 Assessment & Plan (1) Encounter for pre-operative examination: Chart Review Chart Review: Acceptable Risk for Surgery (pending preop Covid testing results ) and Patient NOT seen in Pre Admission Testing Per nursing assessment 07/05/21, patient denies any recent travel. No known Covid positive exposures or Covid related symptoms. No known Covid infection in the past 90 days. Pt is fully vaccinated for Covid. Preop Covid testing 08/01/21= results pending Open sigmoid colon resection 03/02/21= Done under GA with Grade 1 view with MAC #4. ETT#7.5. History Surgery Operation Date: 08/03/21 08:15 Proposed Procedures p Open Repair Left Scrotal Hernia Possible Mesh - Ignacio Lowery MD, FACS Height/Weight Height: 5 ft 6.5 in Weight: 65.771 kg Allergies Allergy/AdvReac Type Severity Reaction Status Date / Time No Known Allergies Allergy Verified 07/05/21 14:39 Medications Home Medications Medication Instructions Recorded Confirmed Last Taken amlodipine 5 mg tablet 5 mg PO QPM 11/08/20 07/05/21 05/31/21 05:30 aspirin 81 mg tablet,delayed 81 mg PO QPM 11/08/20 07/05/21 05/31/21 05:30 release (Adult Aspirin Regimen) atorvastatin 40 mg tablet 40 mg PO QPM 11/08/20 07/05/21 05/31/21 05:30 olmesartan 20 mg tablet 20 mg PO QPM 07/05/21 07/05/21 Unknown Past Medical History Medical History Carotid artery disease s/p right CEA (2013) with redo (2018) Diverticular disease History of TIA (transient ischemic attack) 2013 HLD (hyperlipidemia) HTN (hypertension) Pulmonary emphysema Per recent abdomen CT Scrotal hernia Past Family History Family History Mother Cancer Brother Cancer Myocardial infarction Past Surgical History Surgical History H/O carotid endarterectomy Redo Right CEA (2017) H/O tooth extraction 2019, 2018, 2017 H/O wisdom tooth extraction 1987 History of cataract surgery BL History of incision and drainage Irrigation and Debridement of Left Groin with Packing Dr. Lowery 11-11-2020 Hx of colonoscopy 2018 S/P carotid endarterectomy Right CEA (2013) S/P colon resection (03/02/21) Open Sigmoid Colon Resection Dr. Lowery 03/02/2021 Social History Smoking Status: Former smoker tobacco type: cigarettes Do You Dip or Chew Tobacco: No Smoking End Date: 1998 Hx Alcohol Use: No Alcohol type: beer and wine alcohol intake frequency: holidays/special occasions only Hx Substance Use: No substance use type: does not use Lab Results Anesthesia Preop Results Results Anesthesia Widget: WBC 6.90 K/uL (4.8-10.8) 08/01/21 Hgb 14.1 g/dL (14.0-18.0) 08/01/21 Hct 42.0 % (42-52) 08/01/21 Plt 279 K/uL (130-400) 08/01/21 Na 139 mmol/L (136-145) 08/01/21 K 4.6 mmol/L (3.5-5.1) 08/01/21 Cl 107 mmol/L (98-107) 08/01/21 CO2 29 mmol/L (21-32) 08/01/21 BUN 23 mg/dl (6-23) 08/01/21 Creat 1.03 mg/dl (0.6-1.4) 08/01/21 Glucose Level 93 mg/dl (70-99(Fasting)) 08/01/21 Testing Electrocardiogram Date: 11/10/20 Findings: + ST @ (104bpm) Otherwise normal EKG per cardio. Chest X-Ray Date: 11/10/20 1 view CXR FINDINGS: No pneumothorax. No pleural effusions. The heart is normal in size. There is emphysema with vascular crowding at the lung bases. No new focal lung consolidations to suggest pneumonia. No evidence for pulmonary edema. IMPRESSION: Emphysema. Otherwise, no acute process within the chest. Other Testing Carotid Doppler 11/26/2019 = patent right carotid endarterectomy with no evidence of restenosis. No hemodynamically significant stenosis in the left internal carotid artery. Antegrade flow in the bilateral vertebral arteries. Normal flow in bilateral subclavian arteries. Complex, calcified plaque in the bulb in the left ICA. Compared to previous study dated 11/19/2018, there is no significant change.
[2021-08-03] MEDS ORDERED: ONDANSETRON INJ 2 MG/ML 2 ML VIAL IV PRN ×2 (09:30→11:40)
[2021-08-03] MEDS ORDERED: ATROPINE SULFATE 0.1 MG/ML 10ML SYR IV PRN (09:30)
[2021-08-03] MEDS ORDERED: fentaNYL citrate 100 MCG/2 ML VIAL IV PRN (09:30)
[2021-08-03] MEDS ORDERED: ePHEDrine sulfate 50 MG/ML AMP IV PRN (09:30)
[2021-08-03] MEDS ORDERED: HYDROmorphone INJ 1 MG/ML SYRINGE IV PRN (09:30)
[2021-08-03] MEDS ORDERED: ROCURONIUM BROMIDE 10 MG/ML 5 ML VIAL IV ONE ×2 (09:34→11:37)
[2021-08-03] MEDS ORDERED: ONDANSETRON INJ 2 MG/ML 2 ML VIAL ONE (09:34)
[2021-08-03] MEDS ORDERED: LIDOCAINE 2% 20 MG/ML 5 ML SYR IV ONE (09:34)
[2021-08-03] MEDS ORDERED: fentaNYL citrate 100 MCG/2 ML VIAL ONE (09:34)
[2021-08-03] MEDS ORDERED: PROPOFOL IV EMULSION 10 MG/ML 20 ML VIAL IV ONE (09:34)
[2021-08-03] MEDS ORDERED: DEXAMETHASONE SOD INJ 4 MG/ML VIAL ONE (09:34)
[2021-08-03] MEDS ORDERED: BUPIVACAINE 0.5 % 5 MG/1 ML MPF 30ML VIAL ONE (09:56)
[2021-08-03] MEDS ORDERED: GELATIN SPONGE 12-7MM ONE (09:56)
--- NOTE | 2021-08-03 10:02 | History & Physical Report ---
Date of Service August 03, 2021 Assessment & Plan (1) Bilat ing hernia: Plan: Our plan today is to repair the left inguinal hernia which is more symptomatic The procedure has been extensively discussed with the patient including bleeding infection recurrence We would do it in the operating room general anesthesia open possible mesh All question answered Plan: Patient scheduled for an open repair of the left inguinal scrotal hernia possible mesh and in main OR Patient marked all question answered History of Present Illness Chief Complaint: Bilateral inguinal hernia left side symptomatic Primary Care Provider: Betzaida Rainey This 81-year-old gentleman has been under my care multiple times in the last few years where he had developed an abscess in the left groin that we drained eventually the etiology presented itself with a fistula between the sigmoid colon and the skin we went on and then put a small bowel prep and resected the sigmoid colon at that time he had a large opening in the preperitoneal area and also the dome of the bladder patient did well from that and with time developed a bulge in the left groin area he was noted to have a right inguinal hernia but nothing on the left that we know of the with time he developed a bulge it became increasingly more symptomatic with gurgling and feeling like his bowel changes therefore we saw him and actually a prep from the surgery an H&P was done on 07/04/2021 Since we last saw him there is no changes in his history Allergies Allergy/AdvReac Type Severity Reaction Status Date / Time No Known Allergies Allergy Verified 08/03/21 08:40 Home Medications Medication Instructions Recorded Confirmed Type amlodipine 5 mg tablet 5 mg PO QPM 11/08/20 08/03/21 History aspirin 81 mg tablet,delayed 81 mg PO QPM 11/08/20 08/03/21 History release (Adult Aspirin Regimen) atorvastatin 40 mg tablet 40 mg PO QPM 11/08/20 08/03/21 History olmesartan 20 mg tablet 20 mg PO QPM 07/05/21 08/03/21 History oxycodone-acetaminophen 5 mg-325 1 - 2 tab PO Q4H PRN #15 tab 08/03/21 Rx mg tablet (Percocet) Past Med/Surg History Medical History Carotid artery disease s/p right CEA (2013) with redo (2018) Diverticular disease History of TIA (transient ischemic attack) 2013 HLD (hyperlipidemia) HTN (hypertension) Pulmonary emphysema Per recent abdomen CT Scrotal hernia Surgical History H/O carotid endarterectomy Redo Right CEA (2017) H/O tooth extraction 2019, 2018, 2017 H/O wisdom tooth extraction 1987 History of cataract surgery BL History of incision and drainage Irrigation and Debridement of Left Groin with Packing Dr. Lowery 11-11-2020 Hx of colonoscopy 2018 S/P carotid endarterectomy Right CEA (2013) S/P colon resection (03/02/21) Open Sigmoid Colon Resection Dr. 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 Beliefs That Will Affect Care: None marital status: Current Living Situation: Spouse current occupational status: retired How many Children do You have: 1 Feels Safe at Home: Yes Safety Concerns: Feels Safe At This Time Assistive Devices: Glasses Physical Exam Physical Exam: Alert coherent no distress seen resting comfortably better hard of hearing Sclerae nonicteric No cervical lymphadenopathy No audible wheezing or crackles Heart normal sinus rhythm noted on the monitor The abdomen is benign midline lower abdominal incision still noted the left groin incision that was used for I&D and abscess appears to be transversely above the inguinal ligament patient had a large defect with appears to be into the indirect area going down to the scrotum reducible with some difficulty The right inguinal area shows longstanding right inguinal hernia with similarly extended and top of the scrotum Results & Data ([facility]) Vital Signs (Past 12 Hours) Vital Signs Temp Pulse Resp BP Pulse Ox 08/03/21 08:48 36.9 C 90 20 178/87 H 97
[2021-08-03] MEDS ORDERED: SUGAMMADEX SODIUM 200 MG/2 ML VIAL IV ONE (10:25)
[2021-08-03] MEDS ORDERED: ePHEDrine sulfate 50 MG/ML SYR ONE (10:42)
[2021-08-03] MEDS ORDERED: ceFAZolin 2000MG 2,000 MG/15 ML SYR IV ONE (11:13)
[2021-08-03] MEDS ORDERED: oxyCODONE/ACETAMINOPHEN 5mg/325mg TAB PO PRN ×2 (11:40)
[2021-08-03] MEDS ORDERED: MoRPHine SULFATE 2 MG/ML CARP IV PRN (11:40)
[2021-08-03] MEDS ORDERED: MoRPHine SULFATE 4 MG/ML 1 ML CARP\\VIAL IV PRN (11:40)
[2021-08-03] MEDS ORDERED: SODIUM CHLORIDE 0.9% 1000ML 1,000 ML IV SCH (11:45)
--- NOTE | 2021-08-03 11:49 | Post Operative Brief Note ---
PG Immediate Post Op with CF Date of Surgery August 03, 2021 Pre & Post Diagnosis Operation Date: 08/03/21 10:15 Pre-Op Diagnosis: Left Scrotal Hernia Post-Op Diagnosis: Direct and Indirect Left Scrotal Hernia I identified the patient and participated in the time-out.: Yes Procedure Operation Date: 08/03/21 10:15 Actual Procedures p Open Repair of Direct and Indirect Left Scrotal Hernia, With Mesh(Left) - Ignacio Lowery MD, FACS Surgeon Ignacio Lowery MD, FACS Lathe Winder b korey narayan Estimated Blood Loss 25 Findings Consistent with Post-Op Diagnosis Specimens Specimen Description: A. Hernia Sac (Left Scrotal)
--- NOTE | 2021-08-03 12:12 | Operative Report ---
Post Operative Report Pre & Post Diagnosis Operation Date: 08/03/21 10:15 Pre-Op Diagnosis: Left Scrotal Hernia Post-Op Diagnosis: Direct and Indirect Left Scrotal Hernia I identified the patient and participated in the time-out.: Yes Procedure Operation Date: 08/03/21 10:15 Actual Procedures p Open Repair of Direct and Indirect Left Scrotal Hernia, With Mesh(Left) - Ignacio Lowery MD, FACS The patient was brought into the operating theater after having voided prior to going to the operating room in the supine position general trach anesthesia systemic and biotics on board the left lower quadrant and scrotum was prepped with Betadine scrub a solution properly draped a timeout was had patient was identified The patient had a transverse incision below the anterior superior iliac crest above the inguinal ligament this incision was used to drain a large abscess that extended down the scrotal area and of question etiology at that time we cannot see of the elevation in hernia but nothing that we can see from the peritoneum extending in that area diagnosed at hernia eventually eventually went to identify that he had a sigmoid fistula to the skin and was taken back after bowel prep few months ago where we resected the sigmoid colon and actually the patient has significant blowout of the sigmoid colon about 2 cm more than a perforated on top of the bladder and done in the retroperitoneal area he got over that well is doing fine and then he noticed recently that his left scrotum was getting bigger and he could hear some gurgling in that area We made an incision after using local anesthetic 2 fingerbreadths medial to the anterior iliac crest I curved the incision down towards the scrotal area and laterally I used the lateral part of the transverse incision. Needless to say we are met with significant amount of scar tissue throughout the procedure once we entered the subcutaneous tissue which was very small we were able to meet what it felt like a hernial sac. There was a much plane between the hernial sac and our tissue in the subcutaneous area but gingerly we stayed away and we were eventually able to dissect the hernial sac off the scrotal area off the testicle which we brought up onto the field and the hernial sac which we opened we used that as a guide with our finger near to superiorly and laterally identified the conjoined tendon and then inferiorly we were able to see feel the symphysis pubis. The wall cord structures were strictly stuck to the hernial sac. Once we freed it off the indirect area and probable direct hernia we were able to close it and return anything in the abdomen. There were no adhesions from bowel into the scrotal area or the hernial sac. This was done with 3-0 chromic sutur e. We then came time to repair we dissected down and were able to free up the external muscle and fascia which pretty much was scarred in to about 50% [address] the way into the field then we freed this from the conjoined tendon superiorly and inferiorly from the subcutaneous tissue we followed the external muscle and fascia towards the area where the external ring may have been. We could feel the shelving portion of the inguinal canal without any difficulty in the femoral area there was no evidence of any weakness. We at this point were able to bring together transversalis fascia as much as we can feel superiorly to reconstruct some of the direct area at this with 3-0 interrupted silk suture we close it enough that we were able to snug up the internal ring the colon accommodate a hemostat we had freed the cord and structure from the this hernial sac initially in fact we may have devascularize the bed of it since it was moderately adherent to the hernial sac. In this dissection we also noted that the vas was divided trying to get the hernial sac of the scared tissue and we brought a sheet of Marlex mesh cut it appropriately sutured onto the symphysis pubis none below the shelving portion of the inguinal ligament divided in 2 limbs to reconstruct the internal ring superiorly we sutured onto the conjoined tendon laterally we were able to place the 2 limbs underneath the external fascia which was hard to identify from the muscle that all scarred in. We reconstructed the internal ring by approximating the 2 limbs and the internal ring was fairly stuck. The area was then checked hemostasis appear satisfactory we then closed some of the external fascia which seem to be redundant on top of the mesh down towards the symphysis pubis sufficient enough to reconstruct the external ring. We had another layer after this did was dissected from subcutaneous tissue that was quite prominent I am not sure if it was Claude's fascia we were able to approximated with chromic suture on top of the previous external fascia. Subcutaneous tissue brought back together with 3-0 Vicryl katy for skin edges dressing was applied procedure was tolerated well by the patient estimate blood loss 25 cc Addendum Grabiel LU was present throughout the procedure and helped the retraction exposure and wound closure Addendum spoke with his Catherine at [phone] told her that everything was fine and we will keep him overnight due to the amount of dissection that we needed to do and the scar down tissue Surgeon Ingacio Lowery MD, FACS Paper Inspector sacha lu Estimated Blood Loss 25 Findings Consistent with Post-Op Diagnosis Large direct and indirect hernia down to the scrotum Specimens Hernial sac Indications Large scrotal hernia with intestinal contents progressively getting worse Description of Procedure merda I attest to the content of the Intraoperative Record and any orders documented therein. Any exceptions are noted below.
--- NOTE | 2021-08-03 13:31 | Anesthesiology Progress Note ---
Date of Service August 03, 2021 Anesthesia Post Procedure Vital Signs Vital Signs: Temp Pulse Pulse Resp BP Pulse Ox 08/03/21 13:15 36.4 C L 90 18 168/65 H 96 08/03/21 12:45 72 16 149/69 H 96 08/03/21 12:35 36.2 C L 75 16 101/65 94 08/03/21 12:25 79 16 143/69 H 96 08/03/21 12:15 79 16 143/72 H 93 08/03/21 12:06 36.4 C L 74 14 153/72 H 100 08/03/21 08:48 36.9 C 90 20 178/87 H 97 Pain Intensity Left Groin: Pain Intensity: 2 Transfer of Care Handoff Completed per policy Notes Mental Status: alert / awake / arousable and participated in evaluation Patient Amnestic to Procedure: Yes Nausea / Vomiting: adequately controlled Pain: adequately controlled Airway Patency, RR, SpO2: stable & adequate BP & HR: stable & adequate Hydration State: stable & adequate Anesthetic Complications: no major complications apparent and Pt Satisfied with anesthetic care
[2021-08-03] MEDS: LACTATED RINGER'S 1,000 ML IV SCH (13:43)
[2021-08-03] MEDS ORDERED: ASPIRIN 81 MG ECTAB PO SCH (21:00)
[2021-08-03] MEDS ORDERED: amLODIPine BESYLATE 5 MG TAB PO SCH (21:00)
[2021-08-03] MEDS ORDERED: OLMESARTAN MEDOXOMIL 20 MG TAB PO SCH (21:00)
[2021-08-03] MEDS ORDERED: ATORVASTATIN 40 MG TAB PO SCH (21:00)
[2021-08-04] MEDS: LACTATED RINGER'S 1,000 ML IV SCH (04:48)
--- NOTE | 2021-08-04 07:14 | Surgery Progress Note ---
Date of Service August 04, 2021 Assessment & Plan (1) Bilat ing hernia: Plan: POD#1 operative findings were discussed with the patient We will reevaluate him later this morning if comfortable he can be discharged he may shower no driving advised him to keep a scrotal support on when up and about and we will see him back in the office in 1 week All question answered Our plan today is to repair the left inguinal hernia which is more symptomatic The procedure has been extensively discussed with the patient including bleeding infection recurrence We would do it in the operating room general anesthesia open possible mesh All question answered Plan: Patient scheduled for an open repair of the left inguinal scrotal hernia possible mesh and in main OR Patient marked all question answered Admission and Anticipated Discharge Date Admission Date: August 03, 2021 Subjective Patient is laying comfortably in bed voicing no real discomfort in the scrotum already incision He ate well yesterday without any issues he is voiding frequently Physical Exam Physical Exam: POD#1 patient is first postoperative day status post repair of a large direct and indirect hernia and left groin The operative findings was discussed with the patient POD#1 the abdomen is benign the incision noted drainage on the dressing the katy intact no hematoma or ecchymosis appreciated The scrotal support is on patient has no discomfort in his left testicle or cord Alert coherent no distress seen resting comfortably better hard of hearing Sclerae nonicteric No cervical lymphadenopathy No audible wheezing or crackles Heart normal sinus rhythm noted on the monitor The abdomen is benign midline lower abdominal incision still noted the left groin incision that was used for I&D and abscess appears to be transversely above the inguinal ligament patient had a large defect with appears to be into the indirect area going down to the scrotum reducible with some difficulty The right inguinal area shows longstanding right inguinal hernia with similarly extended and top of the scrotum Results & Data ([facility]) Vital Signs (Past 12 Hours) Vital Signs Temp Pulse Resp BP Pulse Ox 08/04/21 03:21 36.4 C L 72 16 123/66 94 08/03/21 21:40 36.8 C 78 16 152/70 H 92 08/03/21 19:36 36.5 C 85 18 138/60 93 PG Care Time/CCT Total # of Minutes Spent Total Time Spent with Patient: Total time spent is greater than 50% in coordination of care (as documented) at patient's floor/unit and/or counseling patient: Coding Level of Care Code None Diagnoses Bilat ing hernia K40.20
--- NOTE | 2021-08-14 14:34 | Discharge Summary ---
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 we went on and then put a small bowel prep and resected the sigmoid colon at that time he had a large opening in the preperitoneal area and also the dome of the bladder patient did well from that and with time developed a bulge in the left groin area he was noted to have a right inguinal hernia but nothing on the left that we know of the with time he developed a bulge it became increasingly more symptomatic with gurgling and feeling like his bowel changes therefore we saw him and actually a prep from the surgery an H&P was done on 07/04/2021 Since we last saw him there is no changes in his history Principal Diagnosis Left inguinal hernia Discharge Exam Constitutional WD/WN, vitals as above Gastrointestinal (Abdomen) Inspection/Auscultation: abdomen normal to inspection and + abdominal surgical incision (clean, dry) Percussion/Palpation: abdomen soft Discharge Data Allergies Allergy/AdvReac Type Severity Reaction Status Date / Time No Known Allergies Allergy Verified 08/10/21 09:56 Procedures Performed Operation Date: 08/03/21 10:15 Actual Procedures p Open Repair of Direct and Indirect Left Scrotal Hernia, With Mesh(Left) - Ignacio Lowery MD, [facility] Hospital Course (1) Left inguinal hernia: 81 y/o male was taken to the operating room for repair of large left inguinal hernia. Given size of the hernia and his age he was transferred to the surgical floor for overnight observation. In the morning he was tolerating diet and oral analgesics. He was able to void and was stable for discharge home. Total Time Total Time Spent Total Time Spent (In Minutes): 15 Discharge Plan Discharge Items Patient Disposition: Home - Self-Care Reason For Visit: Left Scrotal Hernia Discharge Diagnosis: left inguinal hernia repair Activity: Per Instructions section Lifting: No more than 10 pounds Bathing Comment: may shower starting 08/04/21; no soaking in tubs/pools Exercise/Sports: Wait until after follow-up appointment Non-emergency contact: Surgeon Call non-emergency contact if: you have any medication questions, your symptoms worsen, your pain is not controlled, your pain is concerning for you, you have a fever, your temperature is above 101.5, your wound has increased redness, your wound has increased drainage and your wound pain has increased Follow-up/Referrals: Ignacio Lowery MD, FACS [Surgeon] - 08/10/21 11:00 am (Please call to schedule follow up in clinic within 1 week) Betzaida Rainey CRNP [Primary Care Provider] - Diet: Regular Addtl Attending Provider Instructions: Please ice your groin on and off alternating every 20 minutes until bedtime tonight You have surgical katy in place that will be removed at one of your follow up appointments Pending Studies at Discharge: No Stand-Alone Forms: My [facility] [address] [facility], Opioid Pain Management Medications and DC Order Prescriptions: Continued amlodipine 5 mg tablet 5 mg PO QPM RF: 0 aspirin [Adult Aspirin Regimen] 81 mg tablet,delayed release (DR/EC) 81 mg PO QPM RF: 0 atorvastatin 40 mg tablet 40 mg PO QPM RF: 0 olmesartan 20 mg Tablet 20 mg PO QPM RF: 0 Discharge Orders: Discharge Order (Routine); Ordered 08/04/21 Ordered By: Felipe Michael/Other Patient Handouts: After Hernia Surgery Admission Data Admit Date/Time: 08/03/21 12:21 Attending Provider: Ignacio Lowery Admit Provider: Ignacio Lowery Primary Care Provider: Betzaida Rainey Other Interventions: Discharge Summary Assessment (RN) Last Done: 08/04/21 13:14 Coding Level of Care Code D/C DAY MANAGEMENT <30 MINS Diagnoses Left inguinal hernia K40.90
== END 2021-08-04 14:15 | disposition home or self-care (01) ==
LOC: 3E 08:17 → ASU 08:17